=== PATIENT | female | born 1950 | race African-American/Black ===

== ENCOUNTER 2020-04-01 16:15 | Emergency (ER) | payer MEDICARE, MEDICAID ==
[~2020-04-01] VITALS: Ht 165.1 cm; Wt 77.0 kg
[2020-04-01] MEDS ORDERED: ACETAMINOPHEN 325MG TABLET PO ONE (17:00)
[2020-04-01 23:00] VITALS: BP 137/73
== END 2020-04-01 23:05 | disposition home or self-care (01) ==
LOC: ER 16:15
DX: S52.691A Other fracture of lower end of right ulna, initial encounter for closed fracture (principal); S52.591A Other fractures of lower end of right radius, initial encounter for closed fracture; S62.310A Displaced fracture of base of second metacarpal bone, right hand, initial encounter for closed fracture; W22.8XXA Striking against or struck by other objects, initial encounter; Y93.89 Activity, other specified; Y92.018 Other place in single-family (private) house as the place of occurrence of the external cause; I10 Essential (primary) hypertension; E78.00 Pure hypercholesterolemia, unspecified
CPT/HCPCS: 29125; 73110; 73130; 99284

== ENCOUNTER 2020-08-02 16:57 | Emergency (ER) | payer MEDICARE, MEDICAID ==
[~2020-08-02] VITALS: Ht 175.3 cm; Wt 90.0 kg
[2020-08-02] MEDS ORDERED: ACETAMINOPHEN 325MG TABLET PO STA (17:38)
[2020-08-02 17:56] LABS: BASOPHILS % 0.1 % (0.0-2.0); EOSINOPHILS % 0.1 % (0.0-5.0); HEMATOCRIT. 28.6 % (36.0-48.0); HEMOGLOBIN. 9.4 g/dL (12.0-16.0); LYMPHOCYTES % 8.1 % (20.0-50.0); MEAN CORPUSCULAR VOLUME 88.2 fL (81.0-99.0); MEAN PLATELET VOLUME 7.5 fl (7.4-10.4); MONOCYTES % 9.2 % (2.0-8.0); NEUTROPHILS % 82.5 % (40.0-76.0); PLATELET 200 x1000/uL (130-400); RED BLOOD CELL COUNT 3.24 mill/uL (4.2-5.4); RED CELL DISTRIBUTION WIDTH 15.5 % (11.6-14.6)
[2020-08-02 18:07] LABS: CHLORIDE 111 mEq/L (98-107); D-DIMER 2.47 mg/L FEU (<0.50); PROTHROMBIN TIME 10.7 sec (9.6-11.0)
[2020-08-02 18:29] VITALS: BP 128/84
== END 2020-08-02 22:12 | disposition home or self-care (01) ==
LOC: ER 16:57
DX: M71.21 Synovial cyst of popliteal space [Baker], right knee (principal); N28.9 Disorder of kidney and ureter, unspecified; D64.9 Anemia, unspecified; I10 Essential (primary) hypertension; E78.00 Pure hypercholesterolemia, unspecified
CPT/HCPCS: 36415; 73552; 73590; 80053; 83880; 85025; 85379; 93005; 93971; 99285

== ENCOUNTER 2020-08-19 21:25 | Inpatient (IN) | payer MEDICARE, MEDICAID ==
[~2020-08-19] VITALS: Ht 170.2 cm; Wt 96.2 kg
[2020-08-19] MEDS ORDERED: MORPHINE SULFATE 4 MG/ML CPJ (NOT FOR IM USE) IV STA (23:37)
[2020-08-19] MEDS: VANCOMYCIN 1 G PREMIX 200 ML IV SCH (23:45)
[2020-08-20 01:19] LABS: BASOPHILS % 0.3 % (0.0-2.0); EOSINOPHILS % 1.4 % (0.0-5.0); HEMATOCRIT. 28.8 % (36.0-48.0); HEMOGLOBIN. 9.3 g/dL (12.0-16.0); LYMPHOCYTES % 22.4 % (20.0-50.0); MEAN CORPUSCULAR HEMOGLOBIN 28.7 pg (28.0-32.0); MEAN CORPUSCULAR VOLUME 88.7 fL (81.0-99.0); MEAN PLATELET VOLUME 8.5 fl (7.4-10.4); MONOCYTES % 6.8 % (2.0-8.0); NEUTROPHILS % 69.1 % (40.0-76.0); PLATELET 188 x1000/uL (130-400); RED BLOOD CELL COUNT 3.25 mill/uL (4.2-5.4); RED CELL DISTRIBUTION WIDTH 15.3 % (11.6-14.6)
[2020-08-20 01:31] LABS: CHLORIDE 114 mEq/L (98-107)
[2020-08-20 05:40] VITALS: BP 159/77
[2020-08-20 08:00] VITALS: BP 140/80
[2020-08-20] MEDS ORDERED: HYDR25TA PO (08:03)
[2020-08-20] MEDS ORDERED: LISI10TA5 MT (08:03)
[2020-08-20] MEDS ORDERED: CARV12.545 PO (08:03)
[2020-08-20] MEDS ORDERED: ATOR10TA MT (08:03)
[2020-08-20] MEDS ORDERED: ONDANSETRON HCL 4MG/2ML INJ IV PRN (08:15)
[2020-08-20] MEDS: PIPERACILLIN/TAZOBACTAM 3.375 G in DEXT 5% WATER 100 ML IV SCH ×3 (10:27→21:42)
[2020-08-20] MEDS ORDERED: VANCOMYCIN 1 G PREMIX 200 ML IV NR (11:00)
[2020-08-20 12:00] VITALS: BP 127/67
[2020-08-20 16:00] VITALS: BP 132/62
[2020-08-20] MEDS ORDERED: PNEUMOCOCCAL 23-VAL P-SAC VAC 0.5 ML IM ONE (16:45)
[2020-08-20] MEDS ORDERED: INFLUENZA VACCINE 05/PF 0.5 ML VIAL IM ONE (16:45)
[2020-08-20] MEDS: SODIUM CHLORIDE 0.45% 1,000 ML IV SCH (17:24)
[2020-08-20 20:00] VITALS: BP 144/72
[2020-08-20] MEDS: TRAMADOL 50MG TABLET PO PRN (21:42)
[2020-08-21] VITALS: BP 132/60
[2020-08-21 04:00] VITALS: BP 130/66
[2020-08-21] MEDS: PIPERACILLIN/TAZOBACTAM 3.375 G in DEXT 5% WATER 100 ML IV SCH ×4 (04:39→22:07)
[2020-08-21 06:48] LABS: BASOPHILS % 0.3 % (0.0-2.0); EOSINOPHILS % 1.9 % (0.0-5.0); HEMATOCRIT. 24.1 % (36.0-48.0); HEMOGLOBIN. 7.8 g/dL (12.0-16.0); MEAN CORPUSCULAR HEMOGLOBIN 28.8 pg (28.0-32.0); MEAN CORPUSCULAR VOLUME 88.4 fL (81.0-99.0); MEAN PLATELET VOLUME 8.4 fl (7.4-10.4); MONOCYTES % 8.5 % (2.0-8.0); NEUTROPHILS % 69.3 % (40.0-76.0); PLATELET 135 x1000/uL (130-400); RED BLOOD CELL COUNT 2.73 mill/uL (4.2-5.4)
[2020-08-21 08:00] VITALS: BP 143/71
[2020-08-21] MEDS: TRAMADOL 50MG TABLET PO PRN ×2 (08:40→20:37)
[2020-08-21 12:00] VITALS: BP 131/61
[2020-08-21] MEDS: ACETAMINOPHEN 325MG TABLET PO PRN (12:35)
[2020-08-21] MEDS: SODIUM CHLORIDE 0.45% 1,000 ML IV SCH (12:36)
[2020-08-21 13:24] LABS: TOTAL IRON BINDING CAPACITY 162 ug/dL (250-450)
[2020-08-21] MEDS: ATORVASTATIN CALCIUM 10MG TABLET PO SCH (13:51)
[2020-08-21] MEDS: LISINOPRIL 10MG TABLET PO SCH ×2 (13:52→20:38)
[2020-08-21] MEDS: CARVEDILOL 12.5MG TABLET PO SCH (13:52)
[2020-08-21] MEDS: VANCOMYCIN 1 G PREMIX 200 ML IV SCH (15:38)
[2020-08-21 16:00] VITALS: BP 130/62
[2020-08-21 20:00] VITALS: BP 132/64
[2020-08-21 20:24] LABS: CLARITY URINE CLEAR (CLEAR); COLOR URINE YELLOW (YELLOW); KETONES URINE NEGATIVE (NEGATIVE); LEUKOCYTE ESTERASE URINE 2+ (NEGATIVE); NITRITE URINE NEGATIVE (NEGATIVE); OCCULT BLOOD URINE NEGATIVE (NEGATIVE); PROTEIN URINE NEGATIVE (NEGATIVE); SPECIFIC GRAVITY URINE 1.013 (1.005-1.030); UROBILINOGEN URINE 0.2 E.U./dL (0.2-1.0)
[2020-08-21 21:04] LABS: T4 FREE 1.33 ng/dL (0.76-1.46)
[2020-08-22] VITALS: BP 142/70
[2020-08-22 04:00] VITALS: BP 144/62
[2020-08-22] MEDS: CEFTRIAXONE 2 G in DEXTROSE 5% WATER 50 ML IV SCH ×2 (04:08→21:00)
[2020-08-22] MEDS: SODIUM CHLORIDE 0.45% 1,000 ML IV SCH (04:19)
[2020-08-22] MEDS: TRAMADOL 50MG TABLET PO PRN (04:29)
[2020-08-22 06:47] LABS: BASOPHILS % 0.4 % (0.0-2.0); EOSINOPHILS % 2.3 % (0.0-5.0); HEMATOCRIT. 23.2 % (36.0-48.0); HEMOGLOBIN. 7.6 g/dL (12.0-16.0); LYMPHOCYTES % 21.7 % (20.0-50.0); MEAN CORPUSCULAR VOLUME 88.5 fL (81.0-99.0); MEAN PLATELET VOLUME 8.5 fl (7.4-10.4); MONOCYTES % 6.8 % (2.0-8.0); NEUTROPHILS % 68.8 % (40.0-76.0); PLATELET 117 x1000/uL (130-400); RED BLOOD CELL COUNT 2.62 mill/uL (4.2-5.4); RED CELL DISTRIBUTION WIDTH 14.7 % (11.6-14.6)
[2020-08-22 07:00] LABS: CHLORIDE 114 mEq/L (98-107)
[2020-08-22 07:08] LABS: FOLIC ACID (FOLATE) SERUM 4.7 ng/mL (>5.38)
[2020-08-22 08:00] VITALS: BP 150/74
[2020-08-22] MEDS: CARVEDILOL 12.5MG TABLET PO SCH ×3 (09:00→18:41)
[2020-08-22] MEDS: VANCOMYCIN 1 G PREMIX 200 ML IV SCH ×2 (09:00→11:42)
[2020-08-22] MEDS: ATORVASTATIN CALCIUM 10MG TABLET PO SCH (11:50)
[2020-08-22] MEDS: LISINOPRIL 10MG TABLET PO SCH ×2 (11:51→21:00)
[2020-08-22] MEDS: ACETAMINOPHEN 325MG TABLET PO PRN (11:58)
[2020-08-22 12:00] VITALS: BP 159/51
[2020-08-22] MEDS: FOLIC ACID 1MG TABLET PO SCH ×2 (17:00→18:41)
[2020-08-22 20:00] VITALS: BP 145/77
[2020-08-22] MEDS: DOCUSATE SODIUM 250MG CAPSULE PO SCH (21:00)
[2020-08-23] VITALS: BP 130/62
[2020-08-23] MEDS: VANCOMYCIN 1 G PREMIX 200 ML IV SCH ×3 (04:04→21:25)
[2020-08-23] MEDS: ACETAMINOPHEN 325MG TABLET PO PRN ×2 (04:15→06:43)
[2020-08-23 05:12] VITALS: BP 148/76
[2020-08-23 06:41] LABS: CHLORIDE 112 mEq/L (98-107)
[2020-08-23] MEDS: CYANOCOBALAMIN 1000MCG TABLET PO SCH (07:50)
[2020-08-23 08:00] VITALS: BP 156/68
[2020-08-23] MEDS: FOLIC ACID 1MG TABLET PO SCH ×2 (09:00→12:51)
[2020-08-23 10:15] LABS: BASOPHILS % 0.5 % (0.0-2.0); EOSINOPHILS % 2.9 % (0.0-5.0); HEMATOCRIT. 26.2 % (36.0-48.0); HEMOGLOBIN. 8.5 g/dL (12.0-16.0); LYMPHOCYTES % 25.5 % (20.0-50.0); MEAN CORPUSCULAR HEMOGLOBIN 28.7 pg (28.0-32.0); MEAN CORPUSCULAR VOLUME 88.4 fL (81.0-99.0); MEAN PLATELET VOLUME 9.4 fl (7.4-10.4); MONOCYTES % 7.1 % (2.0-8.0); PLATELET 114 x1000/uL (130-400); RED BLOOD CELL COUNT 2.96 mill/uL (4.2-5.4); RED CELL DISTRIBUTION WIDTH 14.7 % (11.6-14.6)
[2020-08-23 12:00] VITALS: BP 152/62
[2020-08-23] MEDS: DOCUSATE SODIUM 250MG CAPSULE PO SCH ×2 (12:50→21:00)
[2020-08-23] MEDS: CARVEDILOL 12.5MG TABLET PO SCH ×2 (12:51→18:53)
[2020-08-23] MEDS: ATORVASTATIN CALCIUM 10MG TABLET PO SCH (12:51)
[2020-08-23] MEDS: LISINOPRIL 10MG TABLET PO SCH ×2 (12:56→21:24)
[2020-08-23 16:00] VITALS: BP 116/72
[2020-08-23] MEDS: CEFTRIAXONE 2 G in DEXTROSE 5% WATER 50 ML IV SCH (21:24)
[2020-08-23 22:52] VITALS: BP 142/62
[2020-08-24 04:00] VITALS: BP 153/68
[2020-08-24 08:00] VITALS: BP 136/72
[2020-08-24 08:07] LABS: FOLICLE STIMULATING HORMONE 48.2 mIU/mL (.); PROLACTIN 26.5 ng/mL (4.8-23.3)
[2020-08-24] MEDS: DOCUSATE SODIUM 250MG CAPSULE PO SCH ×2 (08:30→21:00)
[2020-08-24] MEDS: FOLIC ACID 1MG TABLET PO SCH ×2 (08:31→08:32)
[2020-08-24] MEDS: CYANOCOBALAMIN 1000MCG TABLET PO SCH (08:31)
[2020-08-24] MEDS: CARVEDILOL 12.5MG TABLET PO SCH ×2 (08:31→17:00)
[2020-08-24] MEDS: LISINOPRIL 10MG TABLET PO SCH ×2 (08:31→23:40)
[2020-08-24] MEDS: ATORVASTATIN CALCIUM 10MG TABLET PO SCH (08:32)
[2020-08-24 13:07] LABS: A/G RATIO 0.8 (0.7-1.7); ALBUMIN 2.6 g/dL (2.9-4.4); ALPHA-1-GLOBULIN 0.3 g/dL (0.0-0.4); ALPHA-2-GLOBULIN 0.9 g/dL (0.4-1.0); BETA GLOBULIN 0.9 g/dL (0.7-1.3); GAMMA GLOBULINS 1.2 g/dL (0.4-1.8); GLOBULIN TOTAL 3.3 g/dL (2.2-3.9); M-SPIKE Not Observed g/dL (Not Observed); TOTAL PROTEIN SERUM 5.9 g/dL (6.0-8.5)
[2020-08-24] MEDS: VANCOMYCIN 1 G PREMIX 200 ML IV SCH (15:08)
[2020-08-24 16:00] VITALS: BP 138/56
[2020-08-24 20:00] VITALS: BP 138/60
[2020-08-24] MEDS: CEFTRIAXONE 2 G in DEXTROSE 5% WATER 50 ML IV SCH (23:40)
[2020-08-25] VITALS (7 sets, daily range): BP systolic 135–148; BP diastolic 56–70
[2020-08-25] MEDS: FOLIC ACID 1MG TABLET PO SCH ×2 (08:44→08:49)
[2020-08-25] MEDS: DOCUSATE SODIUM 250MG CAPSULE PO SCH ×2 (08:44→21:35)
[2020-08-25] MEDS: CYANOCOBALAMIN 1000MCG TABLET PO SCH ×2 (08:48→21:00)
[2020-08-25] MEDS: VANCOMYCIN 1 G PREMIX 200 ML IV SCH (08:48)
[2020-08-25] MEDS: ATORVASTATIN CALCIUM 10MG TABLET PO SCH (08:48)
[2020-08-25] MEDS: LISINOPRIL 10MG TABLET PO SCH ×2 (08:49→21:37)
[2020-08-25] MEDS: CEFTRIAXONE 2 G in DEXTROSE 5% WATER 50 ML IV SCH (21:00)
[2020-08-27 04:08] LABS: 25-HYDROXY VITAMIN D3 6.1 ng/mL (.)
== END 2020-08-25 23:20 | DRG 871 ==
LOC: ER 21:25 → 6EST 08-20 02:13 → ENRESERV 08-20 03:28
PROVIDERS: ADMIT Internal Medicine; ATTEND Internal Medicine
DX: A41.9 Sepsis, unspecified organism (principal); N17.0 Acute kidney failure with tubular necrosis; E44.1 Mild protein-calorie malnutrition; E87.1 Hypo-osmolality and hyponatremia; G82.20 Paraplegia, unspecified; N39.0 Urinary tract infection, site not specified; L03.119 Cellulitis of unspecified part of limb; E66.9 Obesity, unspecified; E78.00 Pure hypercholesterolemia, unspecified; E87.8 Other disorders of electrolyte and fluid balance, not elsewhere classified; E78.5 Hyperlipidemia, unspecified; I89.0 Lymphedema, not elsewhere classified; B35.1 Tinea unguium; E61.1 Iron deficiency; I12.9 Hypertensive chronic kidney disease with stage 1 through stage 4 chronic kidney disease, or unspecified chronic kidney disease; M48.02 Spinal stenosis, cervical region; M48.04 Spinal stenosis, thoracic region; M48.061 Spinal stenosis, lumbar region without neurogenic claudication; M17.0 Bilateral primary osteoarthritis of knee; N18.9 Chronic kidney disease, unspecified; D69.6 Thrombocytopenia, unspecified; D63.1 Anemia in chronic kidney disease; F17.200 Nicotine dependence, unspecified, uncomplicated; E11.65 Type 2 diabetes mellitus with hyperglycemia; M71.21 Synovial cyst of popliteal space [Baker], right knee; M51.36 Other intervertebral disc degeneration, lumbar region; E11.22 Type 2 diabetes mellitus with diabetic chronic kidney disease; Z20.822 Contact with and (suspected) exposure to COVID-19; E05.90 Thyrotoxicosis, unspecified without thyrotoxic crisis or storm; Z68.33 Body mass index [BMI] 33.0-33.9, adult; Z82.49 Family history of ischemic heart disease and other diseases of the circulatory system; Z80.1 Family history of malignant neoplasm of trachea, bronchus and lung
CPT/HCPCS: 36415; 72141; 72146; 72148; 73560; 78014; 80048; 80053; 80202; 81003; 82306; 82533; 82550; 82607; 82746; 83001; 83002; 83036; 83520; 83540; 83550; 84146; 84155; 84165; 84439; 84443; 84481; 85025; 87426; 90686; 90732; 92523; 92610; 93005; 93306; 93971; 97110; 97162; 97166; 97530; 97535; 99285; A9516; C1893; J0696; J2270; J2543; J3370; J7040; J7060

== ENCOUNTER 2020-08-25 23:20 | Inpatient (IN) | payer MEDICARE, MEDICAID ==
[~2020-08-25] VITALS: Ht 170.2 cm; Wt 96.2 kg
[2020-08-25 23:20] VITALS: BP 167/68
[~2020-08-25 23:20] MED LIST: ATOR10TA MT; CARV12.545 PO; HYDR25TA PO; LISI10TA26 MT
[2020-08-25 23:30] VITALS: BP 167/68
[2020-08-26] MEDS ORDERED: ONDANSETRON HCL 4MG/2ML INJ IV PRN
[2020-08-26] MEDS ORDERED: CEFTRIAXONE 2 G in DEXTROSE 5% WATER 50 ML IV SCH ×2 (01:00→22:00)
[2020-08-26] MEDS ORDERED: *PATIENT'S OWN MEDICATION STORAGE XX SCH (01:30)
[2020-08-26 08:00] VITALS: BP 143/62
[2020-08-26 08:26] LABS: BASOPHILS % 0.3 % (0.0-2.0); EOSINOPHILS % 3.3 % (0.0-5.0); HEMOGLOBIN. 8.5 g/dL (12.0-16.0); LYMPHOCYTES % 32.1 % (20.0-50.0); MEAN CORPUSCULAR HEMOGLOBIN 29.1 pg (28.0-32.0); MEAN CORPUSCULAR VOLUME 88.8 fL (81.0-99.0); MEAN PLATELET VOLUME 8.8 fl (7.4-10.4); MONOCYTES % 7.7 % (2.0-8.0); NEUTROPHILS % 56.6 % (40.0-76.0); PLATELET 130 x1000/uL (130-400); RED BLOOD CELL COUNT 2.93 mill/uL (4.2-5.4); RED CELL DISTRIBUTION WIDTH 14.6 % (11.6-14.6)
[2020-08-26 08:28] LABS: CHLORIDE 110 mEq/L (98-107)
[2020-08-26] MEDS: DOCUSATE SODIUM 250MG CAPSULE PO SCH (10:06)
[2020-08-26] MEDS: FOLIC ACID 1MG TABLET PO SCH (10:06)
[2020-08-26] MEDS: LISINOPRIL 10MG TABLET PO SCH ×2 (10:06→21:08)
[2020-08-26] MEDS: ACETAMINOPHEN 325MG TABLET PO PRN (10:08)
[2020-08-26] MEDS: CYANOCOBALAMIN 1000MCG TABLET PO SCH (12:40)
[2020-08-26 20:00] VITALS: BP 140/59
[2020-08-26] MEDS ORDERED: CEFTRIAXONE 2 G PREMIX 50 ML IV SCH (21:00)
[2020-08-26] MEDS: ATORVASTATIN CALCIUM 10MG TABLET PO SCH (21:08)
[2020-08-27] MEDS: ACETAMINOPHEN 325MG TABLET PO PRN ×2 (04:00→04:48)
[2020-08-27 08:05] VITALS: BP 124/59
[2020-08-27] MEDS: LISINOPRIL 10MG TABLET PO SCH ×2 (09:33→21:48)
[2020-08-27] MEDS: FOLIC ACID 1MG TABLET PO SCH (09:33)
[2020-08-27] MEDS: CYANOCOBALAMIN 1000MCG TABLET PO SCH (09:33)
[2020-08-27] MEDS: DOCUSATE SODIUM 250MG CAPSULE PO SCH (09:33)
[2020-08-27 20:00] VITALS: BP 135/62
[2020-08-27] MEDS: ATORVASTATIN CALCIUM 10MG TABLET PO SCH (21:47)
[2020-08-28] MEDS: ACETAMINOPHEN 325MG TABLET PO PRN ×2 (01:16→11:26)
[2020-08-28] MEDS: LISINOPRIL 10MG TABLET PO SCH ×2 (08:45→20:45)
[2020-08-28] MEDS: DOCUSATE SODIUM 250MG CAPSULE PO SCH (08:45)
[2020-08-28] MEDS: FOLIC ACID 1MG TABLET PO SCH (08:45)
[2020-08-28] MEDS: CYANOCOBALAMIN 1000MCG TABLET PO SCH (08:45)
[2020-08-28 12:00] VITALS: BP 140/56
[2020-08-28 20:00] VITALS: BP 142/60
[2020-08-28] MEDS: ATORVASTATIN CALCIUM 10MG TABLET PO SCH (20:45)
[2020-08-29 06:40] LABS: BASOPHILS % 0.4 % (0.0-2.0); EOSINOPHILS % 2.8 % (0.0-5.0); HEMATOCRIT. 24.9 % (36.0-48.0); HEMOGLOBIN. 8.1 g/dL (12.0-16.0); LYMPHOCYTES % 27.3 % (20.0-50.0); MEAN CORPUSCULAR HEMOGLOBIN 28.9 pg (28.0-32.0); MEAN CORPUSCULAR VOLUME 88.5 fL (81.0-99.0); MEAN PLATELET VOLUME 8.1 fl (7.4-10.4); MONOCYTES % 7.6 % (2.0-8.0); NEUTROPHILS % 61.9 % (40.0-76.0); PLATELET 139 x1000/uL (130-400); RED BLOOD CELL COUNT 2.81 mill/uL (4.2-5.4); RED CELL DISTRIBUTION WIDTH 14.7 % (11.6-14.6)
[2020-08-29 08:00] VITALS: BP 136/64
[2020-08-29] MEDS: FOLIC ACID 1MG TABLET PO SCH (09:11)
[2020-08-29] MEDS: LISINOPRIL 10MG TABLET PO SCH ×2 (09:11→20:31)
[2020-08-29] MEDS: DOCUSATE SODIUM 250MG CAPSULE PO SCH (09:11)
[2020-08-29] MEDS: CYANOCOBALAMIN 1000MCG TABLET PO SCH (09:12)
[2020-08-29] MEDS: ACETAMINOPHEN 325MG TABLET PO PRN (10:13)
[2020-08-29] MEDS: TRAMADOL 50MG TABLET PO PRN (14:09)
[2020-08-29 20:00] VITALS: BP 137/66
[2020-08-29] MEDS: ATORVASTATIN CALCIUM 10MG TABLET PO SCH (20:30)
[2020-08-30] MEDS: TRAMADOL 50MG TABLET PO PRN ×3 (01:29→20:38)
[2020-08-30 06:10] LABS: BASOPHILS % 0.5 % (0.0-2.0); EOSINOPHILS % 3.4 % (0.0-5.0); HEMATOCRIT. 25.4 % (36.0-48.0); HEMOGLOBIN. 8.2 g/dL (12.0-16.0); LYMPHOCYTES % 34.5 % (20.0-50.0); MEAN CORPUSCULAR HEMOGLOBIN 28.8 pg (28.0-32.0); MEAN CORPUSCULAR VOLUME 89.4 fL (81.0-99.0); MEAN PLATELET VOLUME 8.2 fl (7.4-10.4); MONOCYTES % 8.4 % (2.0-8.0); NEUTROPHILS % 53.2 % (40.0-76.0); PLATELET 144 x1000/uL (130-400); RED BLOOD CELL COUNT 2.84 mill/uL (4.2-5.4); RED CELL DISTRIBUTION WIDTH 14.7 % (11.6-14.6)
[2020-08-30 08:19] VITALS: BP 133/67
[2020-08-30] MEDS: DOCUSATE SODIUM 250MG CAPSULE PO SCH (09:02)
[2020-08-30] MEDS: FOLIC ACID 1MG TABLET PO SCH (09:03)
[2020-08-30] MEDS: LISINOPRIL 10MG TABLET PO SCH ×2 (09:03→20:38)
[2020-08-30] MEDS: ACETAMINOPHEN 325MG TABLET PO PRN (09:03)
[2020-08-30] MEDS: CYANOCOBALAMIN 1000MCG TABLET PO SCH (09:19)
[2020-08-30] MEDS ORDERED: LACTULOSE 20G/30ML UDC PO SCH (12:40)
[2020-08-30] MEDS ORDERED: LACTULOSE 20G/30ML UDC PO PRN (16:15)
[2020-08-30 20:00] VITALS: BP 139/71
[2020-08-30] MEDS: ATORVASTATIN CALCIUM 10MG TABLET PO SCH (20:38)
[2020-08-31] MEDS: TRAMADOL 50MG TABLET PO PRN (06:38)
[2020-08-31 08:22] VITALS: BP 133/62
[2020-08-31] MEDS: FOLIC ACID 1MG TABLET PO SCH (09:05)
[2020-08-31] MEDS: CYANOCOBALAMIN 1000MCG TABLET PO SCH (09:05)
[2020-08-31] MEDS: DOCUSATE SODIUM 250MG CAPSULE PO SCH (09:05)
[2020-08-31] MEDS: LISINOPRIL 10MG TABLET PO SCH ×2 (09:06→21:19)
[2020-08-31 20:00] VITALS: BP 150/64
[2020-08-31] MEDS: ATORVASTATIN CALCIUM 10MG TABLET PO SCH (21:19)
[2020-09-01 07:20] LABS: BASOPHILS % 0.4 % (0.0-2.0); EOSINOPHILS % 2.4 % (0.0-5.0); HEMATOCRIT. 25.6 % (36.0-48.0); HEMOGLOBIN. 8.3 g/dL (12.0-16.0); LYMPHOCYTES % 36.1 % (20.0-50.0); MEAN CORPUSCULAR VOLUME 90.1 fL (81.0-99.0); MEAN PLATELET VOLUME 7.9 fl (7.4-10.4); MONOCYTES % 8.5 % (2.0-8.0); NEUTROPHILS % 52.6 % (40.0-76.0); PLATELET 156 x1000/uL (130-400); RED BLOOD CELL COUNT 2.84 mill/uL (4.2-5.4); RED CELL DISTRIBUTION WIDTH 15.3 % (11.6-14.6)
[2020-09-01 07:59] VITALS: BP 124/53
[2020-09-01] MEDS: DOCUSATE SODIUM 250MG CAPSULE PO SCH (08:33)
[2020-09-01] MEDS: LISINOPRIL 10MG TABLET PO SCH ×2 (08:34→20:49)
[2020-09-01] MEDS: FOLIC ACID 1MG TABLET PO SCH (08:34)
[2020-09-01] MEDS: CYANOCOBALAMIN 1000MCG TABLET PO SCH (08:35)
[2020-09-01] MEDS: ACETAMINOPHEN 325MG TABLET PO PRN (08:36)
[2020-09-01 20:00] VITALS: BP 136/55
[2020-09-01] MEDS: ATORVASTATIN CALCIUM 10MG TABLET PO SCH (20:41)
[2020-09-02 08:22] VITALS: BP 139/62
[2020-09-02] MEDS: DOCUSATE SODIUM 250MG CAPSULE PO SCH (08:58)
[2020-09-02] MEDS: LISINOPRIL 10MG TABLET PO SCH ×2 (08:58→20:48)
[2020-09-02] MEDS: FOLIC ACID 1MG TABLET PO SCH (08:58)
[2020-09-02] MEDS: CYANOCOBALAMIN 1000MCG TABLET PO SCH (09:06)
[2020-09-02] MEDS: TRAMADOL 50MG TABLET PO PRN (12:07)
[2020-09-02 17:06] LABS: 25-HYDROXY VITAMIN D3 8.5 ng/mL (.)
[2020-09-02 20:00] VITALS: BP 128/85
[2020-09-02] MEDS: ATORVASTATIN CALCIUM 10MG TABLET PO SCH (20:47)
[2020-09-03 08:30] VITALS: BP 142/46
[2020-09-03] MEDS: FOLIC ACID 1MG TABLET PO SCH (09:03)
[2020-09-03] MEDS: LISINOPRIL 10MG TABLET PO SCH ×2 (09:03→22:03)
[2020-09-03] MEDS: DOCUSATE SODIUM 250MG CAPSULE PO SCH (09:03)
[2020-09-03] MEDS: CYANOCOBALAMIN 1000MCG TABLET PO SCH (09:04)
[2020-09-03] MEDS: ERGOCALCIFEROL 50000UNITS CAPSULE PO SCH (11:08)
[2020-09-03 20:00] VITALS: BP 125/75
[2020-09-03] MEDS: ATORVASTATIN CALCIUM 10MG TABLET PO SCH (22:03)
[2020-09-04 07:32] LABS: BASOPHILS % 0.3 % (0.0-2.0); EOSINOPHILS % 2.5 % (0.0-5.0); HEMOGLOBIN. 8.2 g/dL (12.0-16.0); LYMPHOCYTES % 25.1 % (20.0-50.0); MEAN CORPUSCULAR HEMOGLOBIN 28.4 pg (28.0-32.0); MEAN CORPUSCULAR VOLUME 89.6 fL (81.0-99.0); MONOCYTES % 6.8 % (2.0-8.0); NEUTROPHILS % 65.3 % (40.0-76.0); PLATELET 153 x1000/uL (130-400); RED CELL DISTRIBUTION WIDTH 15.2 % (11.6-14.6)
[2020-09-04 08:09] VITALS: BP 145/70
[2020-09-04] MEDS: CYANOCOBALAMIN 1000MCG TABLET PO SCH (08:41)
[2020-09-04] MEDS: DOCUSATE SODIUM 250MG CAPSULE PO SCH (08:41)
[2020-09-04] MEDS: LISINOPRIL 10MG TABLET PO SCH ×2 (08:42→22:21)
[2020-09-04] MEDS: FOLIC ACID 1MG TABLET PO SCH (08:42)
[2020-09-04] MEDS: ACETAMINOPHEN 325MG TABLET PO PRN (11:12)
[2020-09-04 20:00] VITALS: BP 146/69
[2020-09-04] MEDS: ATORVASTATIN CALCIUM 10MG TABLET PO SCH (22:20)
[2020-09-05 08:00] VITALS: BP 136/58
[2020-09-05] MEDS: DOCUSATE SODIUM 250MG CAPSULE PO SCH (09:33)
[2020-09-05] MEDS: FOLIC ACID 1MG TABLET PO SCH (09:33)
[2020-09-05] MEDS: CYANOCOBALAMIN 1000MCG TABLET PO SCH (09:33)
[2020-09-05] MEDS: LISINOPRIL 10MG TABLET PO SCH ×2 (09:33→21:01)
[2020-09-05] MEDS: ACETAMINOPHEN 325MG TABLET PO PRN (14:14)
[2020-09-05 20:00] VITALS: BP 139/67
[2020-09-05] MEDS: ATORVASTATIN CALCIUM 10MG TABLET PO SCH (21:01)
[2020-09-06 08:30] VITALS: BP 140/64
[2020-09-06] MEDS: CYANOCOBALAMIN 1000MCG TABLET PO SCH (08:33)
[2020-09-06] MEDS: LISINOPRIL 10MG TABLET PO SCH ×2 (08:33→20:34)
[2020-09-06] MEDS: DOCUSATE SODIUM 250MG CAPSULE PO SCH (08:33)
[2020-09-06] MEDS: FOLIC ACID 1MG TABLET PO SCH (08:33)
[2020-09-06] MEDS: ACETAMINOPHEN 325MG TABLET PO PRN (09:53)
[2020-09-06 20:00] VITALS: BP 134/59
[2020-09-06] MEDS: ATORVASTATIN CALCIUM 10MG TABLET PO SCH (20:34)
[2020-09-07 07:33] LABS: BASOPHILS % 0.5 % (0.0-2.0); EOSINOPHILS % 2.5 % (0.0-5.0); HEMATOCRIT. 26.2 % (36.0-48.0); HEMOGLOBIN. 8.3 g/dL (12.0-16.0); LYMPHOCYTES % 30.1 % (20.0-50.0); MEAN CORPUSCULAR HEMOGLOBIN 28.5 pg (28.0-32.0); MEAN CORPUSCULAR VOLUME 90.1 fL (81.0-99.0); MEAN PLATELET VOLUME 8.2 fl (7.4-10.4); MONOCYTES % 7.4 % (2.0-8.0); NEUTROPHILS % 59.5 % (40.0-76.0); PLATELET 149 x1000/uL (130-400); RED BLOOD CELL COUNT 2.91 mill/uL (4.2-5.4)
[2020-09-07 08:01] VITALS: BP 132/64
[2020-09-07] MEDS: FOLIC ACID 1MG TABLET PO SCH (08:38)
[2020-09-07] MEDS: DOCUSATE SODIUM 250MG CAPSULE PO SCH (08:38)
[2020-09-07] MEDS: LISINOPRIL 10MG TABLET PO SCH ×2 (08:38→20:53)
[2020-09-07] MEDS: CYANOCOBALAMIN 1000MCG TABLET PO SCH (09:00)
[2020-09-07 20:00] VITALS: BP 151/65
[2020-09-07] MEDS: ATORVASTATIN CALCIUM 10MG TABLET PO SCH (20:52)
[2020-09-08 08:00] VITALS: BP 151/69
[2020-09-08] MEDS: LISINOPRIL 10MG TABLET PO SCH ×2 (08:30→21:16)
[2020-09-08] MEDS: FOLIC ACID 1MG TABLET PO SCH (08:30)
[2020-09-08] MEDS: DOCUSATE SODIUM 250MG CAPSULE PO SCH (08:30)
[2020-09-08] MEDS: ACETAMINOPHEN 325MG TABLET PO PRN ×2 (08:31→23:12)
[2020-09-08] MEDS: CYANOCOBALAMIN 1000MCG TABLET PO SCH (09:00)
[2020-09-08 20:00] VITALS: BP_SYST 144; BP_SYST 148; BP_DIAS 67; BP_DIAS 68
[2020-09-08] MEDS: ATORVASTATIN CALCIUM 10MG TABLET PO SCH (21:16)
[2020-09-09 07:57] VITALS: BP 139/66
[2020-09-09] MEDS: FOLIC ACID 1MG TABLET PO SCH (09:13)
[2020-09-09] MEDS: LISINOPRIL 10MG TABLET PO SCH ×2 (09:13→20:51)
[2020-09-09] MEDS: DOCUSATE SODIUM 250MG CAPSULE PO SCH (09:13)
[2020-09-09] MEDS: CYANOCOBALAMIN 1000MCG TABLET PO SCH (09:18)
[2020-09-09 10:02] LABS: BASOPHILS % 0.5 % (0.0-2.0); EOSINOPHILS % 2.3 % (0.0-5.0); HEMATOCRIT. 27.2 % (36.0-48.0); HEMOGLOBIN. 8.7 g/dL (12.0-16.0); MEAN CORPUSCULAR HEMOGLOBIN 28.8 pg (28.0-32.0); MEAN CORPUSCULAR VOLUME 89.8 fL (81.0-99.0); MEAN PLATELET VOLUME 7.7 fl (7.4-10.4); MONOCYTES % 6.2 % (2.0-8.0); PLATELET 153 x1000/uL (130-400); RED BLOOD CELL COUNT 3.03 mill/uL (4.2-5.4); RED CELL DISTRIBUTION WIDTH 15.6 % (11.6-14.6)
[2020-09-09 20:00] VITALS: BP 141/71
[2020-09-09] MEDS: ATORVASTATIN CALCIUM 10MG TABLET PO SCH (20:51)
[2020-09-10 07:47] VITALS: BP 138/59
[2020-09-10] MEDS: LISINOPRIL 10MG TABLET PO SCH ×2 (08:31→21:50)
[2020-09-10] MEDS: CYANOCOBALAMIN 1000MCG TABLET PO SCH (08:31)
[2020-09-10] MEDS: FOLIC ACID 1MG TABLET PO SCH (08:31)
[2020-09-10] MEDS: ERGOCALCIFEROL 50000UNITS CAPSULE PO SCH (08:31)
[2020-09-10] MEDS: DOCUSATE SODIUM 250MG CAPSULE PO SCH (08:31)
[2020-09-10] MEDS ORDERED: ATOR10TA PO (14:57)
[2020-09-10] MEDS ORDERED: FOLI-43 PO (14:57)
[2020-09-10] MEDS ORDERED: DOCU250C14 PO (14:57)
[2020-09-10] MEDS ORDERED: LISI10TA26 PO (14:57)
[2020-09-10 20:00] VITALS: BP 144/85
[2020-09-10] MEDS: ATORVASTATIN CALCIUM 10MG TABLET PO SCH (21:50)
[2020-09-11 07:58] VITALS: BP 144/63
[2020-09-11] MEDS: CYANOCOBALAMIN 1000MCG TABLET PO SCH (08:49)
[2020-09-11] MEDS: LISINOPRIL 10MG TABLET PO SCH (08:49)
[2020-09-11] MEDS: DOCUSATE SODIUM 250MG CAPSULE PO SCH (08:49)
[2020-09-11] MEDS: FOLIC ACID 1MG TABLET PO SCH (08:49)
[2020-09-11 10:19] VITALS: BP 144/63
== END 2020-09-11 15:36 | disposition home health service (06) | DRG 551 ==
PROVIDERS: ADMIT Physical Medicine & Rehabilitation Spinal Cord Injury Medicine; ATTEND Internal Medicine
DX: M48.061 Spinal stenosis, lumbar region without neurogenic claudication (principal); E43 Unspecified severe protein-calorie malnutrition; A41.9 Sepsis, unspecified organism; N17.9 Acute kidney failure, unspecified; G82.20 Paraplegia, unspecified; N39.0 Urinary tract infection, site not specified; L03.119 Cellulitis of unspecified part of limb; E78.5 Hyperlipidemia, unspecified; I12.9 Hypertensive chronic kidney disease with stage 1 through stage 4 chronic kidney disease, or unspecified chronic kidney disease; M17.0 Bilateral primary osteoarthritis of knee; E66.9 Obesity, unspecified; E53.8 Deficiency of other specified B group vitamins; E61.1 Iron deficiency; R53.81 Other malaise; D63.8 Anemia in other chronic diseases classified elsewhere; M48.02 Spinal stenosis, cervical region; M48.04 Spinal stenosis, thoracic region; E55.9 Vitamin D deficiency, unspecified; E78.00 Pure hypercholesterolemia, unspecified; E87.8 Other disorders of electrolyte and fluid balance, not elsewhere classified; I89.0 Lymphedema, not elsewhere classified; N18.30 Chronic kidney disease, stage 3 unspecified; Z82.49 Family history of ischemic heart disease and other diseases of the circulatory system; Z68.33 Body mass index [BMI] 33.0-33.9, adult; Z79.899 Other long term (current) drug therapy; Z71.3 Dietary counseling and surveillance
CPT/HCPCS: 36415; 80048; 80053; 82270; 82306; 82728; 83540; 83550; 84134; 85025; 93970; 97110; 97112; 97116; 97162; 97166; 97530; 97535; J0696; J7060

== ENCOUNTER 2021-04-17 12:35 | Inpatient (IN) | payer MEDICARE, MEDICAID ==
[~2021-04-17] VITALS: Ht 170.2 cm; Wt 108.0 kg
[~2021-04-17 12:35] MED LIST changes: +ATOR10TA PO; -CARV12.545 PO; +DOCU250C14 PO; +FOLI-43 PO; -HYDR25TA PO; +LISI10TA26 PO
[2021-04-17] MEDS ORDERED: MORPHINE SULFATE 4 MG/ML CPJ (NOT FOR IM USE) IV ONE (14:15)
[2021-04-17] MEDS ORDERED: ACET-2708 MT (15:25)
[2021-04-17] MEDS ORDERED: GABA-529 MT (15:25)
[2021-04-17 15:53] LABS: BASOPHILS % 0.2 % (0.0-2.0); EOSINOPHILS % 0.6 % (0.0-5.0); HEMATOCRIT. 27.8 % (36.0-48.0); HEMOGLOBIN. 9.1 g/dL (12.0-16.0); LYMPHOCYTES % 11.6 % (20.0-50.0); MEAN CORPUSCULAR HEMOGLOBIN 28.8 pg (28.0-32.0); MEAN CORPUSCULAR VOLUME 87.9 fL (81.0-99.0); MEAN PLATELET VOLUME 8.2 fl (7.4-10.4); MONOCYTES % 8.1 % (2.0-8.0); NEUTROPHILS % 79.5 % (40.0-76.0); PLATELET 180 x1000/uL (130-400); RED BLOOD CELL COUNT 3.16 mill/uL (4.2-5.4); RED CELL DISTRIBUTION WIDTH 17.2 % (11.6-14.6)
[2021-04-17 20:30] VITALS: BP 134/75
[2021-04-17 21:00] VITALS: BP 139/40
[2021-04-17] MEDS ORDERED: DIPHENHYDRAMINE 50MG/ML VIAL IV PRN (21:15)
[2021-04-17] MEDS ORDERED: ZOLPIDEM TARTRATE 5MG TABLET PO PRN (21:15)
[2021-04-17] MEDS ORDERED: ONDANSETRON HCL 4MG/2ML INJ IV PRN (21:15)
[2021-04-17] MEDS ORDERED: ACETAMINOPHEN 325MG TABLET PO PRN ×2 (21:15)
[2021-04-17] MEDS ORDERED: MAGNESIUM HYDROXIDE 400MG/5ML 30ML UDC PO PRN (21:15)
[2021-04-17] MEDS ORDERED: CLONIDINE 0.1MG TABLET PO PRN (21:15)
[2021-04-17 22:01] LABS: VITAMIN B12 SERUM 414 pg/mL (211-911)
[2021-04-17] MEDS: ENOXAPARIN 40MG/0.4ML SYR SUBCUT SCH (22:24)
[2021-04-17] MEDS: GABAPENTIN 100MG CAPSULE PO SCH (22:25)
[2021-04-17] MEDS: SODIUM CHLORIDE 0.9% INJ 3ML FLUSH IVF SCH (22:26)
[2021-04-18] VITALS: BP 144/84
[2021-04-18] MEDS ORDERED: LISI-186 PO (00:10)
[2021-04-18] MEDS ORDERED: FURO-152 PO (00:10)
[2021-04-18] MEDS ORDERED: CARV12.545 PO (00:10)
[2021-04-18 04:00] VITALS: BP 119/71
[2021-04-18] MEDS: HYDROMORPHONE HCL/PF 2MG/ML CPJ IV PRN ×2 (04:25→20:39)
[2021-04-18] MEDS: SODIUM CHLORIDE 0.9% INJ 3ML FLUSH IVF SCH ×3 (06:08→21:11)
[2021-04-18] MEDS: GABAPENTIN 100MG CAPSULE PO SCH ×3 (06:09→21:10)
[2021-04-18] MEDS: OMEPRAZOLE 20MG CAPSULE EXTENDED RELEASE PO SCH ×2 (06:21→20:06)
[2021-04-18 08:00] VITALS: BP 110/67
[2021-04-18] MEDS: LISINOPRIL 10MG TABLET PO SCH ×2 (09:01→20:05)
[2021-04-18] MEDS ORDERED: CYANOCOBALAMIN 1000MCG/ML VIAL IM NR (10:00)
[2021-04-18 12:00] VITALS: BP 100/53
[2021-04-18 16:00] VITALS: BP 119/62
[2021-04-18 20:00] VITALS: BP 128/70
[2021-04-18] MEDS: ATORVASTATIN CALCIUM 10MG TABLET PO SCH (20:06)
[2021-04-18] MEDS: ENOXAPARIN 40MG/0.4ML SYR SUBCUT SCH (20:09)
[2021-04-18] MEDS ORDERED: INFLUENZA VACCINE 05/PF 0.5 ML SYRINGE IM ONE (21:30)
[2021-04-19] VITALS (7 sets, daily range): BP systolic 86–123; BP diastolic 44–76
[2021-04-19] MEDS: HYDROCODONE/ACETAMINOPHEN 10/325MG TABLET PO PRN ×3 (05:21→22:46)
[2021-04-19] MEDS: GABAPENTIN 100MG CAPSULE PO SCH ×3 (05:21→21:59)
[2021-04-19] MEDS: SODIUM CHLORIDE 0.9% INJ 3ML FLUSH IVF SCH ×3 (05:28→22:04)
[2021-04-19] MEDS: OMEPRAZOLE 20MG CAPSULE EXTENDED RELEASE PO SCH ×2 (06:30→22:00)
[2021-04-19] MEDS: LISINOPRIL 10MG TABLET PO SCH ×2 (08:20→22:03)
[2021-04-19] MEDS: SODIUM CHLORIDE 0.9% 500 ML IV NR ×2 (12:00→13:16)
[2021-04-19] MEDS: NYSTATIN POWDER 15GM TOP SCH ×2 (13:00→17:01)
[2021-04-19] MEDS ORDERED: SODIUM CHLORIDE 0.9% 500 ML IV ONE (14:00)
[2021-04-19] MEDS ORDERED: NALOXONE HCL 0.4MG/ML VIAL IV PRN (18:45)
[2021-04-19] MEDS: ATORVASTATIN CALCIUM 10MG TABLET PO SCH (22:00)
[2021-04-19] MEDS: ENOXAPARIN 40MG/0.4ML SYR SUBCUT SCH (22:04)
[2021-04-20] VITALS (7 sets, daily range): BP systolic 106–129; BP diastolic 54–70
[2021-04-20] MEDS: SODIUM CHLORIDE 0.9% INJ 3ML FLUSH IVF SCH ×3 (06:05→21:56)
[2021-04-20] MEDS: OMEPRAZOLE 20MG CAPSULE EXTENDED RELEASE PO SCH ×2 (06:08→21:55)
[2021-04-20] MEDS: HYDROCODONE/ACETAMINOPHEN 10/325MG TABLET PO PRN ×2 (06:09→15:23)
[2021-04-20] MEDS: GABAPENTIN 100MG CAPSULE PO SCH ×3 (06:09→21:55)
[2021-04-20] MEDS: LISINOPRIL 10MG TABLET PO SCH ×2 (09:00→21:00)
[2021-04-20] MEDS: NYSTATIN POWDER 15GM TOP SCH ×3 (09:24→17:42)
[2021-04-20] MEDS: ENOXAPARIN 40MG/0.4ML SYR SUBCUT SCH (21:56)
[2021-04-20] MEDS: ATORVASTATIN CALCIUM 10MG TABLET PO SCH (21:56)
[2021-04-21] VITALS (8 sets, daily range): BP systolic 95–133; BP diastolic 55–76
[2021-04-21] MEDS: HYDROCODONE/ACETAMINOPHEN 10/325MG TABLET PO PRN ×3 (02:13→20:16)
[2021-04-21] MEDS: OMEPRAZOLE 20MG CAPSULE EXTENDED RELEASE PO SCH ×2 (06:51→20:16)
[2021-04-21] MEDS: SODIUM CHLORIDE 0.9% INJ 3ML FLUSH IVF SCH ×3 (06:51→20:17)
[2021-04-21] MEDS: GABAPENTIN 100MG CAPSULE PO SCH ×3 (06:51→20:16)
[2021-04-21] MEDS: LISINOPRIL 10MG TABLET PO SCH ×2 (08:34→20:17)
[2021-04-21] MEDS: NYSTATIN POWDER 15GM TOP SCH ×3 (08:35→18:17)
[2021-04-21] MEDS ORDERED: ASPIRIN 325MG EC TABLET PO SCH (18:00)
[2021-04-21] MEDS: ATORVASTATIN CALCIUM 10MG TABLET PO SCH (20:17)
[2021-04-21] MEDS: ENOXAPARIN 40MG/0.4ML SYR SUBCUT SCH (20:17)
== END 2021-04-21 22:20 | DRG 64 ==
LOC: ER 12:47 → EDBEDREQTM 18:10 → EDBEDREQ 18:10 → ENRESERV 19:56 → 6EST 21:41
PROVIDERS: ADMIT Internal Medicine; ATTEND Internal Medicine
DX: I63.81 Other cerebral infarction due to occlusion or stenosis of small artery (principal); N17.0 Acute kidney failure with tubular necrosis; G82.20 Paraplegia, unspecified; M51.16 Intervertebral disc disorders with radiculopathy, lumbar region; M47.22 Other spondylosis with radiculopathy, cervical region; M48.061 Spinal stenosis, lumbar region without neurogenic claudication; E66.01 Morbid (severe) obesity due to excess calories; N18.9 Chronic kidney disease, unspecified; I12.9 Hypertensive chronic kidney disease with stage 1 through stage 4 chronic kidney disease, or unspecified chronic kidney disease; M47.24 Other spondylosis with radiculopathy, thoracic region; M71.21 Synovial cyst of popliteal space [Baker], right knee; D64.9 Anemia, unspecified; E78.00 Pure hypercholesterolemia, unspecified; E78.5 Hyperlipidemia, unspecified; M17.0 Bilateral primary osteoarthritis of knee; Z82.49 Family history of ischemic heart disease and other diseases of the circulatory system; Z91.81 History of falling; Z68.37 Body mass index [BMI] 37.0-37.9, adult
CPT/HCPCS: 36415; 70551; 72141; 72146; 72148; 73590; 80048; 82607; 85025; 90686; 93306; 93971; 97162; 97166; 97530; 97535; 99285; J1170; J1650; J2270; J3420; J7040

== ENCOUNTER 2021-04-21 22:18 | Inpatient (IN) | payer MEDICARE, MEDICAID ==
[~2021-04-21] VITALS: Ht 170.2 cm; Wt 111.6 kg
[~2021-04-21 22:18] MED LIST changes: +ACET-2708 MT; +CARV12.545 PO; +FURO-152 PO; +GABA-529 MT; +LISI-186 PO
[2021-04-21 22:40] VITALS: BP 125/61
[2021-04-21] MEDS ORDERED: CLONIDINE 0.1MG TABLET PO PRN (23:30)
[2021-04-21] MEDS ORDERED: DIPHENHYDRAMINE 25MG CAPSULE PO PRN (23:30)
[2021-04-21] MEDS ORDERED: ONDANSETRON HCL 4MG TABLET PO PRN (23:30)
[2021-04-21] MEDS ORDERED: MAGNESIUM HYDROXIDE 400MG/5ML 30ML UDC PO PRN (23:30)
[2021-04-21] MEDS ORDERED: ACETAMINOPHEN 325MG TABLET PO PRN (23:30)
[2021-04-21] MEDS ORDERED: ZOLPIDEM TARTRATE 5MG TABLET PO PRN (23:30)
[2021-04-21] MEDS ORDERED: NALOXONE HCL 0.4 MG/ML 1ML VIAL IV PRN (23:30)
[2021-04-22] MEDS: GABAPENTIN 100MG CAPSULE PO SCH ×3 (05:55→21:27)
[2021-04-22 08:00] VITALS: BP 118/56
[2021-04-22] MEDS: LISINOPRIL 10MG TABLET PO SCH ×2 (08:17→20:32)
[2021-04-22] MEDS: OMEPRAZOLE 20MG CAPSULE EXTENDED RELEASE PO SCH ×2 (08:17→20:32)
[2021-04-22] MEDS: ASPIRIN 325MG EC TABLET PO SCH (08:17)
[2021-04-22] MEDS: HYDROCODONE/ACETAMINOPHEN 10/325MG TABLET PO PRN (08:19)
[2021-04-22] MEDS: NYSTATIN POWDER 15GM TOP SCH ×3 (08:27→17:27)
[2021-04-22 08:44] LABS: BASOPHILS % 0.2 % (0.0-2.0); EOSINOPHILS % 3.7 % (0.0-5.0); HEMATOCRIT. 24.4 % (36.0-48.0); HEMOGLOBIN. 7.9 g/dL (12.0-16.0); LYMPHOCYTES % 24.6 % (20.0-50.0); MEAN CORPUSCULAR HEMOGLOBIN 28.5 pg (28.0-32.0); MEAN CORPUSCULAR VOLUME 88.2 fL (81.0-99.0); MONOCYTES % 13.3 % (2.0-8.0); NEUTROPHILS % 58.2 % (40.0-76.0); PLATELET 159 x1000/uL (130-400); RED BLOOD CELL COUNT 2.76 mill/uL (4.2-5.4); RED CELL DISTRIBUTION WIDTH 16.5 % (11.6-14.6)
[2021-04-22 09:32] LABS: CHLORIDE 113 mEq/L (98-107)
[2021-04-22 17:43] LABS: CLARITY URINE TURBID (CLEAR); COLOR URINE YELLOW (YELLOW); KETONES URINE NEGATIVE (NEGATIVE); LEUKOCYTE ESTERASE URINE 3+ (NEGATIVE); NITRITE URINE NEGATIVE (NEGATIVE); OCCULT BLOOD URINE 1+ (NEGATIVE); PROTEIN URINE TRACE (NEGATIVE); SPECIFIC GRAVITY URINE 1.012 (1.005-1.030); UROBILINOGEN URINE 0.2 E.U./dL (0.2-1.0)
[2021-04-22 18:13] LABS: TOTAL IRON BINDING CAPACITY 180 ug/dL (250-450)
[2021-04-22 20:00] VITALS: BP 135/71
[2021-04-22] MEDS: ATORVASTATIN CALCIUM 10MG TABLET PO SCH (20:32)
[2021-04-22] MEDS: LEVOFLOXACIN 250MG TABLET PO SCH (20:32)
[2021-04-23] MEDS: HYDROCODONE/ACETAMINOPHEN 10/325MG TABLET PO PRN ×3 (01:03→23:46)
[2021-04-23] MEDS: GABAPENTIN 100MG CAPSULE PO SCH ×3 (05:33→21:49)
[2021-04-23 07:35] LABS: BASOPHILS % 0.3 % (0.0-2.0); HEMATOCRIT. 23.7 % (36.0-48.0); HEMOGLOBIN. 7.9 g/dL (12.0-16.0); LYMPHOCYTES % 23.5 % (20.0-50.0); MEAN CORPUSCULAR HEMOGLOBIN 29.3 pg (28.0-32.0); MEAN CORPUSCULAR VOLUME 87.8 fL (81.0-99.0); MEAN PLATELET VOLUME 7.7 fl (7.4-10.4); NEUTROPHILS % 63.2 % (40.0-76.0); PLATELET 177 x1000/uL (130-400); RED CELL DISTRIBUTION WIDTH 16.5 % (11.6-14.6)
[2021-04-23 07:52] VITALS: BP 111/62
[2021-04-23] MEDS: ASPIRIN 325MG EC TABLET PO SCH (08:23)
[2021-04-23] MEDS: OMEPRAZOLE 20MG CAPSULE EXTENDED RELEASE PO SCH ×2 (08:24→20:10)
[2021-04-23] MEDS: LISINOPRIL 10MG TABLET PO SCH ×2 (08:24→20:14)
[2021-04-23] MEDS: MICONAZOLE NITRATE 2% OINT 71GM TOP SCH (08:26)
[2021-04-23] MEDS: NYSTATIN POWDER 15GM TOP SCH ×3 (08:26→16:44)
[2021-04-23 12:44] LABS: CHLORIDE 112 mEq/L (98-107)
[2021-04-23 13:17] LABS: TOTAL IRON BINDING CAPACITY 210 ug/dL (250-450)
[2021-04-23] MEDS: ACETAMINOPHEN 325MG TABLET PO PRN ×2 (13:18→20:14)
[2021-04-23 14:55] LABS: FOLIC ACID (FOLATE) SERUM 3.4 ng/mL (>5.38)
[2021-04-23 20:00] VITALS: BP 96/51
[2021-04-23] MEDS: ATORVASTATIN CALCIUM 10MG TABLET PO SCH (20:11)
[2021-04-23] MEDS: LEVOFLOXACIN 250MG TABLET PO SCH (20:16)
[2021-04-23 21:00] VITALS: BP 105/77
[2021-04-24] MEDS: ACETAMINOPHEN 325MG TABLET PO PRN ×2 (04:20→08:22)
[2021-04-24] MEDS: GABAPENTIN 100MG CAPSULE PO SCH ×3 (05:37→21:15)
[2021-04-24] MEDS: HYDROCODONE/ACETAMINOPHEN 10/325MG TABLET PO PRN ×3 (05:38→17:49)
[2021-04-24 06:53] LABS: BASOPHILS % 0.4 % (0.0-2.0); EOSINOPHILS % 2.7 % (0.0-5.0); HEMATOCRIT. 25.1 % (36.0-48.0); HEMOGLOBIN. 8.1 g/dL (12.0-16.0); LYMPHOCYTES % 28.1 % (20.0-50.0); MEAN CORPUSCULAR HEMOGLOBIN 28.7 pg (28.0-32.0); MEAN CORPUSCULAR VOLUME 88.6 fL (81.0-99.0); MEAN PLATELET VOLUME 7.8 fl (7.4-10.4); MONOCYTES % 8.4 % (2.0-8.0); NEUTROPHILS % 60.4 % (40.0-76.0); PLATELET 178 x1000/uL (130-400); RED BLOOD CELL COUNT 2.84 mill/uL (4.2-5.4); RED CELL DISTRIBUTION WIDTH 16.5 % (11.6-14.6)
[2021-04-24 08:20] VITALS: BP 116/55
[2021-04-24] MEDS: OMEPRAZOLE 20MG CAPSULE EXTENDED RELEASE PO SCH ×2 (08:21→20:39)
[2021-04-24] MEDS: ASPIRIN 325MG EC TABLET PO SCH (08:22)
[2021-04-24] MEDS: LISINOPRIL 10MG TABLET PO SCH ×2 (08:22→20:31)
[2021-04-24] MEDS: MICONAZOLE NITRATE 2% OINT 71GM TOP SCH (08:23)
[2021-04-24] MEDS: NYSTATIN POWDER 15GM TOP SCH ×3 (08:23→17:48)
[2021-04-24 20:00] VITALS: BP 94/51
[2021-04-24] MEDS: ATORVASTATIN CALCIUM 10MG TABLET PO SCH (20:39)
[2021-04-24] MEDS: AMOXICILLIN/POTASSIUM CLAVULANATE 500/125MG TAB PO SCH (21:15)
[2021-04-25] MEDS: GABAPENTIN 100MG CAPSULE PO SCH ×3 (05:32→21:05)
[2021-04-25] MEDS: AMOXICILLIN/POTASSIUM CLAVULANATE 500/125MG TAB PO SCH ×3 (05:32→21:04)
[2021-04-25] MEDS: HYDROCODONE/ACETAMINOPHEN 10/325MG TABLET PO PRN ×3 (05:40→19:07)
[2021-04-25 07:15] LABS: T4 FREE 0.85 ng/dL (0.76-1.46)
[2021-04-25 08:00] VITALS: BP 102/57
[2021-04-25] MEDS: MICONAZOLE NITRATE 2% OINT 71GM TOP SCH (09:31)
[2021-04-25] MEDS: FOLIC ACID 1MG TABLET PO SCH (09:31)
[2021-04-25] MEDS: ASPIRIN 325MG EC TABLET PO SCH (09:31)
[2021-04-25] MEDS: OMEPRAZOLE 20MG CAPSULE EXTENDED RELEASE PO SCH ×2 (09:31→21:04)
[2021-04-25] MEDS: NYSTATIN POWDER 15GM TOP SCH ×3 (09:31→17:33)
[2021-04-25] MEDS: ACETAMINOPHEN 325MG TABLET PO PRN (10:18)
[2021-04-25 20:00] VITALS: BP 140/64
[2021-04-25] MEDS: ATORVASTATIN CALCIUM 10MG TABLET PO SCH (21:04)
[2021-04-26] MEDS: HYDROCODONE/ACETAMINOPHEN 10/325MG TABLET PO PRN ×3 (01:29→20:30)
[2021-04-26] MEDS: GABAPENTIN 100MG CAPSULE PO SCH ×3 (05:07→21:07)
[2021-04-26] MEDS: AMOXICILLIN/POTASSIUM CLAVULANATE 500/125MG TAB PO SCH ×3 (05:07→21:07)
[2021-04-26 08:00] VITALS: BP 103/58
[2021-04-26] MEDS: OMEPRAZOLE 20MG CAPSULE EXTENDED RELEASE PO SCH ×2 (08:42→20:22)
[2021-04-26] MEDS: MICONAZOLE NITRATE 2% OINT 71GM TOP SCH (08:43)
[2021-04-26] MEDS: ASPIRIN 325MG EC TABLET PO SCH (08:43)
[2021-04-26] MEDS: NYSTATIN POWDER 15GM TOP SCH ×3 (08:43→17:09)
[2021-04-26] MEDS: FOLIC ACID 1MG TABLET PO SCH (08:43)
[2021-04-26] MEDS ORDERED: SODIUM POLYSTYRENE SULFONATE 15 G/60 ML BOT PO NR (11:00)
[2021-04-26] MEDS: ACETAMINOPHEN 325MG TABLET PO PRN ×2 (11:02→23:45)
[2021-04-26 14:48] LABS: CREATINE KINASE 24 IU/L (26-192)
[2021-04-26 20:00] VITALS: BP 117/57
[2021-04-26] MEDS: ATORVASTATIN CALCIUM 10MG TABLET PO SCH (20:22)
[2021-04-27] MEDS: HYDROCODONE/ACETAMINOPHEN 10/325MG TABLET PO PRN ×3 (02:56→17:37)
[2021-04-27] MEDS: AMOXICILLIN/POTASSIUM CLAVULANATE 500/125MG TAB PO SCH ×3 (05:46→21:03)
[2021-04-27] MEDS: GABAPENTIN 100MG CAPSULE PO SCH ×3 (05:47→21:03)
[2021-04-27] MEDS: ACETAMINOPHEN 325MG TABLET PO PRN (06:07)
[2021-04-27 08:00] VITALS: BP 105/55
[2021-04-27 08:03] LABS: BASOPHILS % 0.2 % (0.0-2.0); EOSINOPHILS % 2.1 % (0.0-5.0); HEMATOCRIT. 22.7 % (36.0-48.0); HEMOGLOBIN. 7.4 g/dL (12.0-16.0); LYMPHOCYTES % 30.5 % (20.0-50.0); MEAN CORPUSCULAR HEMOGLOBIN 29.1 pg (28.0-32.0); MEAN CORPUSCULAR VOLUME 89.3 fL (81.0-99.0); MEAN PLATELET VOLUME 7.5 fl (7.4-10.4); MONOCYTES % 7.9 % (2.0-8.0); NEUTROPHILS % 59.3 % (40.0-76.0); PLATELET 208 x1000/uL (130-400); RED BLOOD CELL COUNT 2.54 mill/uL (4.2-5.4)
[2021-04-27] MEDS: FOLIC ACID 1MG TABLET PO SCH (09:32)
[2021-04-27] MEDS: ASPIRIN 325MG EC TABLET PO SCH (09:33)
[2021-04-27] MEDS: MICONAZOLE NITRATE 2% OINT 71GM TOP SCH (09:34)
[2021-04-27] MEDS: NYSTATIN POWDER 15GM TOP SCH ×3 (09:34→17:38)
[2021-04-27] MEDS: OMEPRAZOLE 20MG CAPSULE EXTENDED RELEASE PO SCH ×2 (09:42→21:02)
[2021-04-27] MEDS ORDERED: SODIUM POLYSTYRENE SULFONATE 15 G/60 ML BOT PO SCH (12:00)
[2021-04-27 20:00] VITALS: BP 128/64
[2021-04-27] MEDS: ATORVASTATIN CALCIUM 10MG TABLET PO SCH (21:02)
[2021-04-28] MEDS: HYDROCODONE/ACETAMINOPHEN 10/325MG TABLET PO PRN ×2 (01:40→09:40)
[2021-04-28] MEDS: AMOXICILLIN/POTASSIUM CLAVULANATE 500/125MG TAB PO SCH ×3 (05:11→21:54)
[2021-04-28] MEDS: GABAPENTIN 100MG CAPSULE PO SCH ×3 (05:12→21:54)
[2021-04-28 06:42] LABS: BASOPHILS % 0.5 % (0.0-2.0); EOSINOPHILS % 1.7 % (0.0-5.0); HEMATOCRIT. 23.3 % (36.0-48.0); HEMOGLOBIN. 7.5 g/dL (12.0-16.0); LYMPHOCYTES % 23.9 % (20.0-50.0); MEAN CORPUSCULAR HEMOGLOBIN 28.8 pg (28.0-32.0); MEAN CORPUSCULAR VOLUME 89.3 fL (81.0-99.0); MEAN PLATELET VOLUME 7.5 fl (7.4-10.4); MONOCYTES % 8.2 % (2.0-8.0); NEUTROPHILS % 65.7 % (40.0-76.0); PLATELET 213 x1000/uL (130-400); RED BLOOD CELL COUNT 2.61 mill/uL (4.2-5.4); RED CELL DISTRIBUTION WIDTH 15.9 % (11.6-14.6)
[2021-04-28 08:00] VITALS: BP 141/74
[2021-04-28] MEDS: ASPIRIN 325MG EC TABLET PO SCH (09:30)
[2021-04-28] MEDS: MICONAZOLE NITRATE 2% OINT 71GM TOP SCH (09:30)
[2021-04-28] MEDS: OMEPRAZOLE 20MG CAPSULE EXTENDED RELEASE PO SCH ×2 (09:30→21:54)
[2021-04-28] MEDS: NYSTATIN POWDER 15GM TOP SCH ×3 (09:30→17:51)
[2021-04-28] MEDS: FOLIC ACID 1MG TABLET PO SCH (09:30)
[2021-04-28 20:00] VITALS: BP 107/53
[2021-04-28] MEDS: ATORVASTATIN CALCIUM 10MG TABLET PO SCH (21:54)
[2021-04-29] MEDS: AMOXICILLIN/POTASSIUM CLAVULANATE 500/125MG TAB PO SCH ×3 (06:17→21:18)
[2021-04-29] MEDS: GABAPENTIN 100MG CAPSULE PO SCH ×3 (06:17→21:19)
[2021-04-29 07:39] LABS: BASOPHILS % 0.2 % (0.0-2.0); EOSINOPHILS % 1.2 % (0.0-5.0); HEMATOCRIT. 23.9 % (36.0-48.0); HEMOGLOBIN. 7.9 g/dL (12.0-16.0); LYMPHOCYTES % 21.9 % (20.0-50.0); MEAN CORPUSCULAR HEMOGLOBIN 29.2 pg (28.0-32.0); MEAN CORPUSCULAR VOLUME 88.6 fL (81.0-99.0); MEAN PLATELET VOLUME 7.3 fl (7.4-10.4); MONOCYTES % 7.6 % (2.0-8.0); NEUTROPHILS % 69.1 % (40.0-76.0); PLATELET 219 x1000/uL (130-400); RED BLOOD CELL COUNT 2.69 mill/uL (4.2-5.4); RED CELL DISTRIBUTION WIDTH 16.7 % (11.6-14.6)
[2021-04-29 08:00] VITALS: BP 150/64
[2021-04-29] MEDS: OMEPRAZOLE 20MG CAPSULE EXTENDED RELEASE PO SCH ×2 (08:22→21:18)
[2021-04-29] MEDS: COLCHICINE 0.6MG TABLET PO SCH (08:22)
[2021-04-29] MEDS: PREDNISONE 5MG TABLET PO SCH (08:22)
[2021-04-29] MEDS: ASPIRIN 325MG EC TABLET PO SCH (08:22)
[2021-04-29] MEDS: HYDROCODONE/ACETAMINOPHEN 10/325MG TABLET PO PRN (08:22)
[2021-04-29] MEDS: FOLIC ACID 1MG TABLET PO SCH (08:22)
[2021-04-29] MEDS: MICONAZOLE NITRATE 2% OINT 71GM TOP SCH (09:00)
[2021-04-29] MEDS: DICLOFENAC SODIUM 1% GEL 50GM TOP SCH ×4 (09:00→21:22)
[2021-04-29] MEDS: NYSTATIN POWDER 15GM TOP SCH ×3 (09:00→17:00)
[2021-04-29] MEDS ORDERED: METHYLPREDNISOLONE ACETATE 40MG/ML VIAL IM ONE (17:15)
[2021-04-29] MEDS ORDERED: TRIAMCINOLONE ACETONIDE 40MG/ML 1ML VIAL INJ SCH (17:30)
[2021-04-29 20:00] VITALS: BP 120/63
[2021-04-29] MEDS: ATORVASTATIN CALCIUM 10MG TABLET PO SCH (21:19)
[2021-04-30] MEDS: GABAPENTIN 100MG CAPSULE PO SCH ×3 (05:33→23:07)
[2021-04-30 06:51] LABS: BASOPHILS % 0.2 % (0.0-2.0); EOSINOPHILS % 0.1 % (0.0-5.0); HEMATOCRIT. 24.9 % (36.0-48.0); HEMOGLOBIN. 8.2 g/dL (12.0-16.0); LYMPHOCYTES % 9.7 % (20.0-50.0); MEAN CORPUSCULAR HEMOGLOBIN 29.3 pg (28.0-32.0); MEAN CORPUSCULAR VOLUME 89.3 fL (81.0-99.0); MEAN PLATELET VOLUME 7.5 fl (7.4-10.4); MONOCYTES % 5.1 % (2.0-8.0); NEUTROPHILS % 84.9 % (40.0-76.0); PLATELET 237 x1000/uL (130-400); RED BLOOD CELL COUNT 2.79 mill/uL (4.2-5.4); RED CELL DISTRIBUTION WIDTH 16.4 % (11.6-14.6)
[2021-04-30 08:00] VITALS: BP 142/84
[2021-04-30] MEDS: HYDROCODONE/ACETAMINOPHEN 10/325MG TABLET PO PRN (09:24)
[2021-04-30] MEDS: ASPIRIN 325MG EC TABLET PO SCH (09:25)
[2021-04-30] MEDS: NYSTATIN POWDER 15GM TOP SCH ×3 (09:25→16:15)
[2021-04-30] MEDS: PREDNISONE 5MG TABLET PO SCH (09:25)
[2021-04-30] MEDS: OMEPRAZOLE 20MG CAPSULE EXTENDED RELEASE PO SCH ×2 (09:25→23:07)
[2021-04-30] MEDS: COLCHICINE 0.6MG TABLET PO SCH (09:25)
[2021-04-30] MEDS: MICONAZOLE NITRATE 2% OINT 71GM TOP SCH (09:25)
[2021-04-30] MEDS: FOLIC ACID 1MG TABLET PO SCH (09:25)
[2021-04-30] MEDS: DICLOFENAC SODIUM 1% GEL 50GM TOP SCH ×4 (09:26→23:08)
[2021-04-30] MEDS: ACETAMINOPHEN 325MG TABLET PO PRN (13:43)
[2021-04-30 20:00] VITALS: BP 136/64
[2021-04-30] MEDS: ATORVASTATIN CALCIUM 10MG TABLET PO SCH (23:08)
[2021-05-01] MEDS: GABAPENTIN 100MG CAPSULE PO SCH ×3 (06:57→21:26)
[2021-05-01 08:00] VITALS: BP_SYST 150; BP_SYST 152; BP_DIAS 70; BP_DIAS 71
[2021-05-01] MEDS: MICONAZOLE NITRATE 2% OINT 71GM TOP SCH (09:46)
[2021-05-01] MEDS: OMEPRAZOLE 20MG CAPSULE EXTENDED RELEASE PO SCH ×2 (09:46→21:26)
[2021-05-01] MEDS: ASPIRIN 325MG EC TABLET PO SCH (09:46)
[2021-05-01] MEDS: FOLIC ACID 1MG TABLET PO SCH (09:46)
[2021-05-01] MEDS: PREDNISONE 5MG TABLET PO SCH (09:46)
[2021-05-01] MEDS: COLCHICINE 0.6MG TABLET PO SCH (09:46)
[2021-05-01] MEDS: DICLOFENAC SODIUM 1% GEL 50GM TOP SCH ×4 (09:47→21:27)
[2021-05-01] MEDS: NYSTATIN POWDER 15GM TOP SCH ×3 (09:47→16:47)
[2021-05-01] MEDS: AMLODIPINE 5MG TABLET PO SCH (11:15)
[2021-05-01 13:07] LABS: ANTI-MYELOPEROXIDASE AB < 9.0 U/mL (0.0-9.0); ANTI-PROTEINASE 3 ABS < 3.5 U/mL (0.0-3.5)
[2021-05-01 19:08] LABS: ANGIOTENSION CONVERTING ENZYME 10 U/L (14-82)
[2021-05-01 20:00] VITALS: BP 140/63
[2021-05-01] MEDS: ATORVASTATIN CALCIUM 10MG TABLET PO SCH (21:26)
[2021-05-02] MEDS: GABAPENTIN 100MG CAPSULE PO SCH ×3 (05:47→21:37)
[2021-05-02 06:47] LABS: BASOPHILS % 0.2 % (0.0-2.0); EOSINOPHILS % 0.3 % (0.0-5.0); HEMATOCRIT. 23.6 % (36.0-48.0); HEMOGLOBIN. 7.6 g/dL (12.0-16.0); LYMPHOCYTES % 16.4 % (20.0-50.0); MEAN CORPUSCULAR HEMOGLOBIN 29.3 pg (28.0-32.0); MEAN CORPUSCULAR VOLUME 90.5 fL (81.0-99.0); MEAN PLATELET VOLUME 7.6 fl (7.4-10.4); MONOCYTES % 7.6 % (2.0-8.0); NEUTROPHILS % 75.5 % (40.0-76.0); PLATELET 227 x1000/uL (130-400); RED BLOOD CELL COUNT 2.61 mill/uL (4.2-5.4); RED CELL DISTRIBUTION WIDTH 16.5 % (11.6-14.6)
[2021-05-02 08:30] VITALS: BP 137/67
[2021-05-02] MEDS: NYSTATIN POWDER 15GM TOP SCH ×3 (09:00→16:06)
[2021-05-02] MEDS: DICLOFENAC SODIUM 1% GEL 50GM TOP SCH ×4 (09:00→21:37)
[2021-05-02] MEDS: MICONAZOLE NITRATE 2% OINT 71GM TOP SCH (09:00)
[2021-05-02 09:06] LABS: ANA IFA Negative (.)
[2021-05-02] MEDS: FOLIC ACID 1MG TABLET PO SCH (09:38)
[2021-05-02] MEDS: PREDNISONE 5MG TABLET PO SCH (09:38)
[2021-05-02] MEDS: COLCHICINE 0.6MG TABLET PO SCH (09:38)
[2021-05-02] MEDS: OMEPRAZOLE 20MG CAPSULE EXTENDED RELEASE PO SCH ×2 (09:38→21:37)
[2021-05-02] MEDS: AMLODIPINE 5MG TABLET PO SCH (09:39)
[2021-05-02] MEDS: ASPIRIN 325MG EC TABLET PO SCH (09:39)
[2021-05-02 14:07] LABS: ATYPICAL P-ANCA <1:20 titer (Neg:<1:20); CYTOPLASMIC C-ANCA <1:20 titer (Neg:<1:20); PERINUCLEAR P-ANCA <1:20 titer (Neg:<1:20)
[2021-05-02 20:00] VITALS: BP 132/65
[2021-05-02] MEDS: ATORVASTATIN CALCIUM 10MG TABLET PO SCH (21:37)
[2021-05-03] MEDS: GABAPENTIN 100MG CAPSULE PO SCH ×3 (05:07→21:00)
[2021-05-03 06:15] LABS: HEMOGLOBIN. 7.8 g/dL (12.0-16.0); MEAN CORPUSCULAR HEMOGLOBIN 29.2 pg (28.0-32.0); MEAN CORPUSCULAR VOLUME 89.8 fL (81.0-99.0); MEAN PLATELET VOLUME 7.6 fl (7.4-10.4); PLATELET 234 x1000/uL (130-400); RED BLOOD CELL COUNT 2.67 mill/uL (4.2-5.4); RED CELL DISTRIBUTION WIDTH 16.6 % (11.6-14.6)
[2021-05-03 08:00] VITALS: BP 128/70
[2021-05-03] MEDS: COLCHICINE 0.6MG TABLET PO SCH (09:09)
[2021-05-03] MEDS: FOLIC ACID 1MG TABLET PO SCH (09:09)
[2021-05-03] MEDS: OMEPRAZOLE 20MG CAPSULE EXTENDED RELEASE PO SCH ×2 (09:09→20:38)
[2021-05-03] MEDS: PREDNISONE 5MG TABLET PO SCH (09:09)
[2021-05-03] MEDS: ASPIRIN 325MG EC TABLET PO SCH (09:09)
[2021-05-03] MEDS: NYSTATIN POWDER 15GM TOP SCH ×3 (09:10→17:00)
[2021-05-03] MEDS: AMLODIPINE 5MG TABLET PO SCH (09:10)
[2021-05-03] MEDS: DICLOFENAC SODIUM 1% GEL 50GM TOP SCH ×4 (09:10→20:38)
[2021-05-03] MEDS: MICONAZOLE NITRATE 2% OINT 71GM TOP SCH (09:11)
[2021-05-03 09:29] LABS: PLATELET ESTIMATE NORMAL
[2021-05-03 20:00] VITALS: BP 125/65
[2021-05-03] MEDS: ATORVASTATIN CALCIUM 10MG TABLET PO SCH (20:38)
[2021-05-04] MEDS ORDERED: HYDROCODONE/ACETAMINOPHEN 10/325MG TABLET PO PRN (03:15)
[2021-05-04] MEDS: GABAPENTIN 100MG CAPSULE PO SCH ×3 (05:46→21:00)
[2021-05-04 07:53] VITALS: BP 150/54
[2021-05-04] MEDS: COLCHICINE 0.6MG TABLET PO SCH (08:40)
[2021-05-04] MEDS: OMEPRAZOLE 20MG CAPSULE EXTENDED RELEASE PO SCH ×2 (08:40→20:26)
[2021-05-04] MEDS: FOLIC ACID 1MG TABLET PO SCH (08:40)
[2021-05-04] MEDS: ASPIRIN 325MG EC TABLET PO SCH (08:40)
[2021-05-04] MEDS: AMLODIPINE 5MG TABLET PO SCH (08:40)
[2021-05-04] MEDS: PREDNISONE 5MG TABLET PO SCH (08:40)
[2021-05-04] MEDS: NYSTATIN POWDER 15GM TOP SCH ×3 (08:41→17:00)
[2021-05-04] MEDS: MICONAZOLE NITRATE 2% OINT 71GM TOP SCH (08:41)
[2021-05-04] MEDS: DICLOFENAC SODIUM 1% GEL 50GM TOP SCH ×5 (08:41→20:26)
[2021-05-04 20:00] VITALS: BP 126/67
[2021-05-04] MEDS: ATORVASTATIN CALCIUM 10MG TABLET PO SCH (20:26)
[2021-05-05] MEDS: GABAPENTIN 100MG CAPSULE PO SCH ×3 (05:48→21:02)
[2021-05-05 08:26] VITALS: BP 128/74
[2021-05-05] MEDS: OMEPRAZOLE 20MG CAPSULE EXTENDED RELEASE PO SCH ×2 (08:45→20:49)
[2021-05-05] MEDS: AMLODIPINE 5MG TABLET PO SCH (08:46)
[2021-05-05] MEDS: FOLIC ACID 1MG TABLET PO SCH (08:46)
[2021-05-05] MEDS: COLCHICINE 0.6MG TABLET PO SCH (08:47)
[2021-05-05] MEDS: ASPIRIN 325MG EC TABLET PO SCH (08:47)
[2021-05-05] MEDS: PREDNISONE 5MG TABLET PO SCH (08:47)
[2021-05-05] MEDS: MICONAZOLE NITRATE 2% OINT 71GM TOP SCH (08:49)
[2021-05-05] MEDS: NYSTATIN POWDER 15GM TOP SCH ×3 (08:49→17:14)
[2021-05-05] MEDS: DICLOFENAC SODIUM 1% GEL 50GM TOP SCH ×4 (08:56→20:49)
[2021-05-05 20:00] VITALS: BP 157/76
[2021-05-05] MEDS: ATORVASTATIN CALCIUM 10MG TABLET PO SCH (20:49)
[2021-05-06] MEDS: GABAPENTIN 100MG CAPSULE PO SCH ×3 (05:21→21:53)
[2021-05-06 06:35] LABS: BASOPHILS % 0.3 % (0.0-2.0); EOSINOPHILS % 1.2 % (0.0-5.0); HEMATOCRIT. 26.4 % (36.0-48.0); HEMOGLOBIN. 8.4 g/dL (12.0-16.0); LYMPHOCYTES % 23.6 % (20.0-50.0); MEAN CORPUSCULAR HEMOGLOBIN 29.1 pg (28.0-32.0); MEAN CORPUSCULAR VOLUME 91.3 fL (81.0-99.0); MEAN PLATELET VOLUME 7.6 fl (7.4-10.4); MONOCYTES % 6.8 % (2.0-8.0); NEUTROPHILS % 68.1 % (40.0-76.0); PLATELET 217 x1000/uL (130-400); RED BLOOD CELL COUNT 2.89 mill/uL (4.2-5.4); RED CELL DISTRIBUTION WIDTH 17.7 % (11.6-14.6)
[2021-05-06 08:00] VITALS: BP 141/67
[2021-05-06] MEDS: MICONAZOLE NITRATE 2% OINT 71GM TOP SCH (08:30)
[2021-05-06] MEDS: FOLIC ACID 1MG TABLET PO SCH (08:31)
[2021-05-06] MEDS: COLCHICINE 0.6MG TABLET PO SCH (08:31)
[2021-05-06] MEDS: PREDNISONE 5MG TABLET PO SCH (08:31)
[2021-05-06] MEDS: NYSTATIN POWDER 15GM TOP SCH ×3 (08:31→17:26)
[2021-05-06] MEDS: OMEPRAZOLE 20MG CAPSULE EXTENDED RELEASE PO SCH ×2 (08:31→22:01)
[2021-05-06] MEDS: ASPIRIN 325MG EC TABLET PO SCH (08:31)
[2021-05-06] MEDS: AMLODIPINE 5MG TABLET PO SCH ×2 (08:31→21:52)
[2021-05-06] MEDS: DICLOFENAC SODIUM 1% GEL 50GM TOP SCH ×4 (08:32→21:49)
[2021-05-06] MEDS ORDERED: SODIUM POLYSTYRENE SULFONATE 15 G/60 ML BOT PO SCH (08:45)
[2021-05-06] MEDS ORDERED: NALOXONE HCL 0.4MG/ML VIAL IV PRN (13:00)
[2021-05-06 17:06] LABS: 25-HYDROXY VITAMIN D3 9.6 ng/mL (.)
[2021-05-06 20:00] VITALS: BP 131/76
[2021-05-06] MEDS: ATORVASTATIN CALCIUM 10MG TABLET PO SCH (21:52)
[2021-05-06] MEDS: ENOXAPARIN 40MG/0.4ML SYR SUBCUT SCH (21:52)
[2021-05-07] MEDS: GABAPENTIN 100MG CAPSULE PO SCH ×3 (05:39→21:17)
[2021-05-07 07:11] LABS: BASOPHILS % 0.4 % (0.0-2.0); EOSINOPHILS % 1.3 % (0.0-5.0); HEMATOCRIT. 26.3 % (36.0-48.0); HEMOGLOBIN. 8.5 g/dL (12.0-16.0); LYMPHOCYTES % 27.8 % (20.0-50.0); MEAN CORPUSCULAR HEMOGLOBIN 29.7 pg (28.0-32.0); MEAN CORPUSCULAR VOLUME 91.4 fL (81.0-99.0); MEAN PLATELET VOLUME 7.7 fl (7.4-10.4); MONOCYTES % 7.4 % (2.0-8.0); NEUTROPHILS % 63.1 % (40.0-76.0); PLATELET 218 x1000/uL (130-400); RED BLOOD CELL COUNT 2.87 mill/uL (4.2-5.4); RED CELL DISTRIBUTION WIDTH 17.9 % (11.6-14.6)
[2021-05-07 07:57] LABS: PHOSPHORUS 3.2 mg/dL (2.5-4.9)
[2021-05-07 08:00] VITALS: BP_DIAS 72
[2021-05-07] MEDS: ASPIRIN 325MG EC TABLET PO SCH (08:46)
[2021-05-07] MEDS: OMEPRAZOLE 20MG CAPSULE EXTENDED RELEASE PO SCH ×2 (08:46→21:16)
[2021-05-07] MEDS: PREDNISONE 5MG TABLET PO SCH (08:46)
[2021-05-07] MEDS: FOLIC ACID 1MG TABLET PO SCH (08:46)
[2021-05-07] MEDS: COLCHICINE 0.6MG TABLET PO SCH (08:47)
[2021-05-07] MEDS: DICLOFENAC SODIUM 1% GEL 50GM TOP SCH ×4 (08:47→21:16)
[2021-05-07] MEDS: NYSTATIN POWDER 15GM TOP SCH ×3 (09:57→17:35)
[2021-05-07] MEDS: MICONAZOLE NITRATE 2% OINT 71GM TOP SCH (09:57)
[2021-05-07] MEDS ORDERED: ERGOCALCIFEROL 50000UNITS CAPSULE PO SCH (17:15)
[2021-05-07 20:00] VITALS: BP 136/72
[2021-05-07] MEDS: ATORVASTATIN CALCIUM 10MG TABLET PO SCH (21:16)
[2021-05-07] MEDS: ENOXAPARIN 40MG/0.4ML SYR SUBCUT SCH (21:17)
[2021-05-08] MEDS: GABAPENTIN 100MG CAPSULE PO SCH ×3 (06:24→23:02)
[2021-05-08 08:00] VITALS: BP 145/71
[2021-05-08] MEDS: DICLOFENAC SODIUM 1% GEL 50GM TOP SCH ×4 (08:09→21:00)
[2021-05-08] MEDS: ASPIRIN 325MG EC TABLET PO SCH (09:39)
[2021-05-08] MEDS: OMEPRAZOLE 20MG CAPSULE EXTENDED RELEASE PO SCH ×2 (09:39→23:02)
[2021-05-08] MEDS: PREDNISONE 5MG TABLET PO SCH (09:40)
[2021-05-08] MEDS: FOLIC ACID 1MG TABLET PO SCH (09:40)
[2021-05-08] MEDS: COLCHICINE 0.6MG TABLET PO SCH (09:40)
[2021-05-08] MEDS: AMLODIPINE 5MG TABLET PO SCH (09:42)
[2021-05-08] MEDS: NYSTATIN POWDER 15GM TOP SCH ×3 (09:48→17:00)
[2021-05-08] MEDS: MICONAZOLE NITRATE 2% OINT 71GM TOP SCH (09:48)
[2021-05-08 20:00] VITALS: BP 137/60
[2021-05-08] MEDS: ATORVASTATIN CALCIUM 10MG TABLET PO SCH (23:02)
[2021-05-08] MEDS: ENOXAPARIN 40MG/0.4ML SYR SUBCUT SCH (23:04)
[2021-05-09] MEDS: GABAPENTIN 100MG CAPSULE PO SCH ×3 (05:48→21:49)
[2021-05-09 08:00] VITALS: BP 152/80
[2021-05-09] MEDS: OMEPRAZOLE 20MG CAPSULE EXTENDED RELEASE PO SCH ×2 (08:52→21:48)
[2021-05-09] MEDS: AMLODIPINE 5MG TABLET PO SCH (08:52)
[2021-05-09] MEDS: PREDNISONE 5MG TABLET PO SCH (08:52)
[2021-05-09] MEDS: COLCHICINE 0.6MG TABLET PO SCH (08:52)
[2021-05-09] MEDS: ASPIRIN 325MG EC TABLET PO SCH (08:52)
[2021-05-09] MEDS: NYSTATIN POWDER 15GM TOP SCH ×3 (08:57→17:56)
[2021-05-09] MEDS: MICONAZOLE NITRATE 2% OINT 71GM TOP SCH (08:58)
[2021-05-09] MEDS: FOLIC ACID 1MG TABLET PO SCH (08:58)
[2021-05-09] MEDS: DICLOFENAC SODIUM 1% GEL 50GM TOP SCH ×4 (08:58→21:49)
[2021-05-09 20:00] VITALS: BP 134/71
[2021-05-09] MEDS: ATORVASTATIN CALCIUM 10MG TABLET PO SCH (21:49)
[2021-05-09] MEDS: ENOXAPARIN 40MG/0.4ML SYR SUBCUT SCH (22:25)
[2021-05-10] MEDS: GABAPENTIN 100MG CAPSULE PO SCH ×3 (05:24→21:53)
[2021-05-10 07:28] LABS: BASOPHILS % 0.3 % (0.0-2.0); EOSINOPHILS % 1.2 % (0.0-5.0); HEMOGLOBIN. 8.5 g/dL (12.0-16.0); MEAN PLATELET VOLUME 7.9 fl (7.4-10.4); MONOCYTES % 6.6 % (2.0-8.0); NEUTROPHILS % 60.9 % (40.0-76.0); PLATELET 188 x1000/uL (130-400); RED BLOOD CELL COUNT 2.83 mill/uL (4.2-5.4); RED CELL DISTRIBUTION WIDTH 18.6 % (11.6-14.6)
[2021-05-10 07:31] LABS: CHLORIDE 113 mEq/L (98-107)
[2021-05-10 08:00] VITALS: BP 159/74
[2021-05-10] MEDS: COLCHICINE 0.6MG TABLET PO SCH (08:13)
[2021-05-10] MEDS: AMLODIPINE 5MG TABLET PO SCH (08:14)
[2021-05-10] MEDS: OMEPRAZOLE 20MG CAPSULE EXTENDED RELEASE PO SCH ×2 (08:14→21:53)
[2021-05-10] MEDS: PREDNISONE 5MG TABLET PO SCH (08:14)
[2021-05-10] MEDS: FOLIC ACID 1MG TABLET PO SCH (08:14)
[2021-05-10] MEDS: ASPIRIN 325MG EC TABLET PO SCH (08:14)
[2021-05-10] MEDS: DICLOFENAC SODIUM 1% GEL 50GM TOP SCH ×4 (08:15→21:53)
[2021-05-10] MEDS: NYSTATIN POWDER 15GM TOP SCH ×3 (08:15→17:02)
[2021-05-10] MEDS: MICONAZOLE NITRATE 2% OINT 71GM TOP SCH (08:18)
[2021-05-10 20:00] VITALS: BP 143/73
[2021-05-10] MEDS: ATORVASTATIN CALCIUM 10MG TABLET PO SCH (21:53)
[2021-05-10] MEDS: ENOXAPARIN 40MG/0.4ML SYR SUBCUT SCH (22:41)
[2021-05-11] MEDS: GABAPENTIN 100MG CAPSULE PO SCH ×3 (05:01→21:03)
[2021-05-11 08:00] VITALS: BP 153/86
[2021-05-11] MEDS: OMEPRAZOLE 20MG CAPSULE EXTENDED RELEASE PO SCH ×2 (09:26→20:00)
[2021-05-11] MEDS: COLCHICINE 0.6MG TABLET PO SCH (09:26)
[2021-05-11] MEDS: FOLIC ACID 1MG TABLET PO SCH (09:27)
[2021-05-11] MEDS: ASPIRIN 325MG EC TABLET PO SCH (09:27)
[2021-05-11] MEDS: AMLODIPINE 5MG TABLET PO SCH (09:28)
[2021-05-11] MEDS: PREDNISONE 5MG TABLET PO SCH (09:28)
[2021-05-11] MEDS: DICLOFENAC SODIUM 1% GEL 50GM TOP SCH ×4 (09:29→20:00)
[2021-05-11] MEDS: NYSTATIN POWDER 15GM TOP SCH ×3 (09:30→17:05)
[2021-05-11] MEDS: MICONAZOLE NITRATE 2% OINT 71GM TOP SCH (09:31)
[2021-05-11 20:00] VITALS: BP 130/76
[2021-05-11] MEDS: ATORVASTATIN CALCIUM 10MG TABLET PO SCH (20:00)
[2021-05-11] MEDS: ENOXAPARIN 40MG/0.4ML SYR SUBCUT SCH (23:19)
[2021-05-12] MEDS: GABAPENTIN 100MG CAPSULE PO SCH (06:14)
[2021-05-12 08:00] VITALS: BP 151/74
[2021-05-12] MEDS: ASPIRIN 325MG EC TABLET PO SCH (08:34)
[2021-05-12] MEDS: PREDNISONE 5MG TABLET PO SCH (08:35)
[2021-05-12] MEDS: NYSTATIN POWDER 15GM TOP SCH ×2 (08:35→12:15)
[2021-05-12] MEDS: COLCHICINE 0.6MG TABLET PO SCH (08:35)
[2021-05-12] MEDS: MICONAZOLE NITRATE 2% OINT 71GM TOP SCH (08:35)
[2021-05-12] MEDS: FOLIC ACID 1MG TABLET PO SCH (08:35)
[2021-05-12] MEDS: DICLOFENAC SODIUM 1% GEL 50GM TOP SCH ×2 (08:35→12:15)
[2021-05-12] MEDS: AMLODIPINE 5MG TABLET PO SCH (08:35)
[2021-05-12] MEDS: OMEPRAZOLE 20MG CAPSULE EXTENDED RELEASE PO SCH (08:35)
[2021-05-12 12:45] VITALS: BP 151/74
== END 2021-05-12 16:13 | DRG 64 ==
PROVIDERS: ADMIT Physical Medicine & Rehabilitation Spinal Cord Injury Medicine; ATTEND Internal Medicine
PROC: 3E0U33Z Introduction of Anti-inflammatory into Joints, Percutaneous Approach (ICD-10-PCS; principal; 2021-04-27)
PROC: 3E0U3BZ Introduction of Anesthetic Agent into Joints, Percutaneous Approach (ICD-10-PCS; 2021-04-27)
PROC: 3E0U33Z Introduction of Anti-inflammatory into Joints, Percutaneous Approach (ICD-10-PCS; 2021-04-29)
PROC: 3E0U3BZ Introduction of Anesthetic Agent into Joints, Percutaneous Approach (ICD-10-PCS; 2021-04-29)
PROC: 0HBRXZZ Excision of Toe Nail, External Approach (ICD-10-PCS; 2021-05-09)
PROC: 0HBRXZZ Excision of Toe Nail, External Approach (ICD-10-PCS; 2021-05-09)
PROC: 0HBRXZZ Excision of Toe Nail, External Approach (ICD-10-PCS; 2021-05-09)
PROC: 0HBRXZZ Excision of Toe Nail, External Approach (ICD-10-PCS; 2021-05-09)
PROC: 0HBRXZZ Excision of Toe Nail, External Approach (ICD-10-PCS; 2021-05-09)
PROC: 0HBRXZZ Excision of Toe Nail, External Approach (ICD-10-PCS; 2021-05-09)
PROC: 0HBRXZZ Excision of Toe Nail, External Approach (ICD-10-PCS; 2021-05-09)
PROC: 0HBRXZZ Excision of Toe Nail, External Approach (ICD-10-PCS; 2021-05-09)
PROC: 0HBRXZZ Excision of Toe Nail, External Approach (ICD-10-PCS; 2021-05-09)
PROC: 0HBRXZZ Excision of Toe Nail, External Approach (ICD-10-PCS; 2021-05-09)
DX: I63.81 Other cerebral infarction due to occlusion or stenosis of small artery (principal); E43 Unspecified severe protein-calorie malnutrition; G82.20 Paraplegia, unspecified; N17.9 Acute kidney failure, unspecified; N18.4 Chronic kidney disease, stage 4 (severe); N39.0 Urinary tract infection, site not specified; D63.8 Anemia in other chronic diseases classified elsewhere; E66.01 Morbid (severe) obesity due to excess calories; E78.00 Pure hypercholesterolemia, unspecified; E78.5 Hyperlipidemia, unspecified; I12.9 Hypertensive chronic kidney disease with stage 1 through stage 4 chronic kidney disease, or unspecified chronic kidney disease; M17.0 Bilateral primary osteoarthritis of knee; M48.02 Spinal stenosis, cervical region; M48.04 Spinal stenosis, thoracic region; M48.061 Spinal stenosis, lumbar region without neurogenic claudication; B35.1 Tinea unguium; B96.20 Unspecified Escherichia coli [E. coli] as the cause of diseases classified elsewhere; E55.9 Vitamin D deficiency, unspecified; E87.5 Hyperkalemia; F01.50 Vascular dementia, unspecified severity, without behavioral disturbance, psychotic disturbance, mood disturbance, and anxiety; F06.34 Mood disorder due to known physiological condition with mixed features; M50.30 Other cervical disc degeneration, unspecified cervical region; Z20.822 Contact with and (suspected) exposure to COVID-19; M51.36 Other intervertebral disc degeneration, lumbar region; R53.81 Other malaise; E53.8 Deficiency of other specified B group vitamins; R73.9 Hyperglycemia, unspecified; M71.551 Other bursitis, not elsewhere classified, right hip; M71.21 Synovial cyst of popliteal space [Baker], right knee; Z68.38 Body mass index [BMI] 38.0-38.9, adult; Z82.49 Family history of ischemic heart disease and other diseases of the circulatory system; Z80.1 Family history of malignant neoplasm of trachea, bronchus and lung; Z86.73 Personal history of transient ischemic attack (TIA), and cerebral infarction without residual deficits; Z90.710 Acquired absence of both cervix and uterus
CPT/HCPCS: 36415; 73560; 76770; 80048; 80053; 81003; 82164; 82270; 82306; 82533; 82550; 82607; 82728; 82746; 83520; 83540; 83550; 83735; 84100; 84134; 84439; 84443; 84481; 84550; 85025; 86256; 86431; 87077; 87186; 87426; 92523; 92610; 93880; 93923; 93970; 97022; 97110; 97116; 97162; 97166; 97530; 97535; 97542; A4565; A6261; J1030; J1650; J3301; J7512

== ENCOUNTER 2022-02-01 08:35 | Inpatient (IN) | payer MEDICARE, MEDICAID ==
[~2022-02-01] VITALS: Ht 170.2 cm; Wt 135.2 kg
[~2022-02-01 08:35] MED LIST changes: -ATOR10TA PO; -LISI10TA26 PO
[2022-02-01 09:33] LABS: BASOPHILS % 0.3 % (0.0-2.0); EOSINOPHILS % 1.4 % (0.0-5.0); HEMATOCRIT. 33.3 % (36.0-48.0); HEMOGLOBIN. 10.8 g/dL (12.0-16.0); LYMPHOCYTES % 18.4 % (20.0-50.0); MEAN CORPUSCULAR VOLUME 89.1 fL (81.0-99.0); MEAN PLATELET VOLUME 7.9 fl (7.4-10.4); MONOCYTES % 6.7 % (2.0-8.0); NEUTROPHILS % 73.2 % (40.0-76.0); PLATELET 198 x1000/uL (130-400); RED BLOOD CELL COUNT 3.74 mill/uL (4.2-5.4); RED CELL DISTRIBUTION WIDTH 15.7 % (11.6-14.6)
[2022-02-01 09:42] LABS: CHLORIDE 108 mEq/L (98-107)
[2022-02-01] MEDS ORDERED: SODIUM CHLORIDE 0.9% 500 ML IV ONE (10:45)
[2022-02-01] MEDS ORDERED: MECLIZINE 25MG TABLET PO ONE (11:45)
[2022-02-01] MEDS ORDERED: GUAIFENESIN 200MG/10ML SUGAR FREE UDC PO PRN (13:45)
[2022-02-01] MEDS ORDERED: ACETAMINOPHEN 325MG TABLET PO PRN ×2 (13:45)
[2022-02-01] MEDS ORDERED: MAGNESIUM/ALUMINUM HYDROXIDE/SIMETHICONE 30ML UDC PO PRN (13:45)
[2022-02-01] MEDS ORDERED: IPRATROPIUM/ALBUTEROL 0.5-3(2.5)MG/3ML NEB NEB PRN (13:45)
[2022-02-01] MEDS ORDERED: ONDANSETRON HCL 4MG/2ML INJ IV PRN (13:45)
[2022-02-01 14:00] VITALS: BP 168/89
[2022-02-01] MEDS ORDERED: NALOXONE HCL 0.4MG/ML VIAL IV PRN (14:00)
[2022-02-01] MEDS ORDERED: MECLIZINE 12.5MG TABLET PO PRN (15:00)
[2022-02-01] MEDS ORDERED: HYDR-4135 PO ×2 (15:31→15:57)
[2022-02-01] MEDS ORDERED: CLOP-31 MT (15:31)
[2022-02-01] MEDS ORDERED: CARV12.545 PO (15:59)
[2022-02-01 16:00] VITALS: BP_SYST 170; BP_SYST 172; BP_DIAS 87; BP_DIAS 88
[2022-02-01] MEDS ORDERED: FURO20TA4 PO (16:07)
[2022-02-01] MEDS ORDERED: POTA-205 PO (16:08)
[2022-02-01] MEDS ORDERED: LISI20TA31 PO (16:09)
[2022-02-01] MEDS: CLONIDINE 0.1MG TABLET PO PRN (16:56)
[2022-02-01] MEDS ORDERED: CARVEDILOL 12.5MG TABLET PO SCH (17:00)
[2022-02-01 17:27] LABS: TOTAL IRON BINDING CAPACITY 309 ug/dL (250-450)
[2022-02-01 17:45] VITALS: BP 168/85
[2022-02-01] MEDS: CLOPIDOGREL 75MG TABLET PO SCH (18:23)
[2022-02-01 20:00] VITALS: BP_SYST 131; BP_SYST 135; BP_DIAS 67; BP_DIAS 69
[2022-02-01] MEDS ORDERED: LISINOPRIL 10MG TABLET PO SCH (21:00)
[2022-02-01] MEDS: ENOXAPARIN 40MG/0.4ML SYR SUBCUT SCH (21:16)
[2022-02-01] MEDS: HYDRALAZINE HCL 50MG TABLET PO SCH (21:17)
[2022-02-01] MEDS: HYDROCODONE/ACETAMINOPHEN 5/325MG TABLET PO PRN (21:18)
[2022-02-02] VITALS: BP 136/68
[2022-02-02 03:59] VITALS: BP 158/75
[2022-02-02] MEDS: HYDRALAZINE HCL 50MG TABLET PO SCH ×3 (06:12→21:16)
[2022-02-02] MEDS: HYDROCODONE/ACETAMINOPHEN 5/325MG TABLET PO PRN ×2 (06:14→21:16)
[2022-02-02 07:47] LABS: HEMATOCRIT 31.1 % (36.0-48.0); MEAN CORPUSCULAR HEMOGLOBIN 29.3 pg (28.0-32.0); PLATELET 174 x1000/uL (130-400); RED BLOOD CELL COUNT 3.41 mill/uL (4.2-5.4)
[2022-02-02 08:00] VITALS: BP_SYST 139; BP_SYST 145; BP_DIAS 73; BP_DIAS 75
[2022-02-02 08:09] LABS: T4 FREE 1.06 ng/dL (0.76-1.46)
[2022-02-02 08:13] LABS: FOLIC ACID (FOLATE) SERUM 17.7 ng/mL (>5.38)
[2022-02-02] MEDS ORDERED: ATORVASTATIN CALCIUM 10MG TABLET PO SCH (09:00)
[2022-02-02] MEDS ORDERED: FUROSEMIDE 20MG TABLET PO SCH (09:00)
[2022-02-02] MEDS ORDERED: LISINOPRIL 5MG TABLET PO SCH (09:00)
[2022-02-02] MEDS: FOLIC ACID 1MG TABLET PO SCH (10:29)
[2022-02-02] MEDS: CARVEDILOL 12.5MG TABLET PO SCH ×2 (10:30→21:15)
[2022-02-02] MEDS: CLOPIDOGREL 75MG TABLET PO SCH (10:30)
[2022-02-02] MEDS: DOCUSATE SODIUM 250MG CAPSULE PO SCH (10:30)
[2022-02-02] MEDS: LISINOPRIL 20MG TABLET PO SCH (10:31)
[2022-02-02] MEDS: ENOXAPARIN 40MG/0.4ML SYR SUBCUT SCH ×2 (10:33→21:15)
[2022-02-02 12:00] VITALS: BP 151/73
[2022-02-02] MEDS ORDERED: MECLIZINE 25MG TABLET PO PRN (15:00)
[2022-02-02 16:00] VITALS: BP 146/74
[2022-02-02 20:00] VITALS: BP 131/53
[2022-02-02] MEDS: ATORVASTATIN CALCIUM 10MG TABLET PO SCH (22:24)
[2022-02-03] VITALS (7 sets, daily range): BP systolic 136–196; BP diastolic 65–90
[2022-02-03] MEDS: HYDROCODONE/ACETAMINOPHEN 5/325MG TABLET PO PRN ×2 (03:21→21:21)
[2022-02-03] MEDS: HYDRALAZINE HCL 50MG TABLET PO SCH ×4 (06:24→21:58)
[2022-02-03 07:02] LABS: HEMATOCRIT 31.7 % (36.0-48.0); HEMOGLOBIN 10.3 g/dL (12.0-16.0); MEAN CORPUSCULAR HEMOGLOBIN 29.1 pg (28.0-32.0); MEAN CORPUSCULAR VOLUME 89.4 fL (81.0-99.0); PLATELET 195 x1000/uL (130-400); RED BLOOD CELL COUNT 3.54 mill/uL (4.2-5.4); RED CELL DISTRIBUTION WIDTH 15.8 % (11.6-14.6)
[2022-02-03] MEDS: CARVEDILOL 12.5MG TABLET PO SCH ×2 (09:16→21:21)
[2022-02-03] MEDS: CLOPIDOGREL 75MG TABLET PO SCH (09:16)
[2022-02-03] MEDS: DOCUSATE SODIUM 250MG CAPSULE PO SCH (09:16)
[2022-02-03] MEDS: ENOXAPARIN 40MG/0.4ML SYR SUBCUT SCH ×2 (09:17→21:22)
[2022-02-03] MEDS: FOLIC ACID 1MG TABLET PO SCH (09:17)
[2022-02-03] MEDS: LISINOPRIL 20MG TABLET PO SCH (09:17)
[2022-02-03] MEDS: CLONIDINE 0.1MG TABLET PO PRN (09:19)
[2022-02-03] MEDS ORDERED: MECL-159 PO (11:30)
[2022-02-03] MEDS ORDERED: AMLODIPINE 5MG TABLET PO SCH (11:30)
[2022-02-03] MEDS ORDERED: AMLO5TAB88 PO (11:30)
[2022-02-03] MEDS ORDERED: HYDR-4135 PO (11:30)
[2022-02-03] MEDS ORDERED: LISI20TA31 PO (11:30)
[2022-02-03] MEDS ORDERED: LISINOPRIL 20MG TABLET PO SCH (21:00)
[2022-02-03] MEDS: ATORVASTATIN CALCIUM 10MG TABLET PO SCH (21:21)
[2022-02-03] MEDS ORDERED: SODIUM CHLORIDE 0.45% 1,000 ML IV SCH (22:45)
[2022-02-03] MEDS ORDERED: CHLORTHALIDONE 25MG TABLET PO SCH (23:15)
[2022-02-03] MEDS ORDERED: CHLO25TA2 PO (23:22)
[2022-02-03] MEDS ORDERED: AMLO10TA80 PO (23:22)
[2022-02-03] MEDS ORDERED: AMLODIPINE 5MG TABLET PO NR (23:30)
[2022-02-04] VITALS: BP 138/59
[2022-02-04 03:56] VITALS: BP 150/63
[2022-02-04 06:12] LABS: HEMATOCRIT 30.3 % (36.0-48.0); MEAN CORPUSCULAR HEMOGLOBIN 29.4 pg (28.0-32.0); MEAN CORPUSCULAR VOLUME 89.4 fL (81.0-99.0); PLATELET 162 x1000/uL (130-400); RED BLOOD CELL COUNT 3.39 mill/uL (4.2-5.4)
[2022-02-04] MEDS: HYDRALAZINE HCL 50MG TABLET PO SCH (06:15)
[2022-02-04 07:27] LABS: PHOSPHORUS 3.4 mg/dL (2.5-4.9)
[2022-02-04 08:00] VITALS: BP 149/66
[2022-02-04] MEDS ORDERED: AMLODIPINE 10MG TABLET PO SCH (09:00)
== END 2022-02-04 09:39 | DRG 149 ==
LOC: ER 08:35 → 6WST 12:00 → EDBEDREQ 12:06 → EDBEDREQTM 12:06 → ENRESERV 12:33
PROVIDERS: ADMIT Internal Medicine; ATTEND Internal Medicine
DX: H81.10 Benign paroxysmal vertigo, unspecified ear (principal); E46 Unspecified protein-calorie malnutrition; Z68.42 Body mass index [BMI] 45.0-49.9, adult; I50.32 Chronic diastolic (congestive) heart failure; I13.0 Hypertensive heart and chronic kidney disease with heart failure and stage 1 through stage 4 chronic kidney disease, or unspecified chronic kidney disease; I69.351 Hemiplegia and hemiparesis following cerebral infarction affecting right dominant side; E86.0 Dehydration; I44.0 Atrioventricular block, first degree; I16.0 Hypertensive urgency; M19.90 Unspecified osteoarthritis, unspecified site; I25.10 Atherosclerotic heart disease of native coronary artery without angina pectoris; D50.9 Iron deficiency anemia, unspecified; D63.1 Anemia in chronic kidney disease; N18.9 Chronic kidney disease, unspecified; Z82.49 Family history of ischemic heart disease and other diseases of the circulatory system
CPT/HCPCS: 36415; 71045; 80048; 80053; 82607; 82728; 82746; 83540; 83550; 83735; 83880; 84100; 84439; 84443; 84484; 85025; 85027; 93005; 93306; 97161; 97162; 97165; 97166; 99285; J1650; J7040; J8597